=== PATIENT | male | born 1945 | race Caucasian/White ===

== ENCOUNTER 2020-08-23 08:32 | Outpatient (REF) | payer MEDICARE, SELFPAY ==
[2020-08-23 09:00] LABS: Basophils Percent Auto 0.4 % (0-2); Hematocrit 48.2 % (42-52); Imm Gran Abs Auto 0.01 X10*3/uL (0.00-0.03); Imm Gran Pct Auto 0.2 % (0.0-0.4); Mean Corpuscular Volume 95.4 fL (80-98); Red Blood Count 5.05 X10*6/uL (4.60-5.80)
[2020-08-23 09:02] LABS: Eosinophils Absolute Auto 0.1 X10*3/uL (0.0-0.4); Hemoglobin 16.3 g/dl (14.0-18.0); Lymphocytes Absolute Auto 1.4 X10*3/uL (1.2-4.9); Lymphocytes Percent Auto 26.4 % (20-40); Mean Corpuscular HGB Conc 33.8 g/dl (31.0-36.0); Mean Corpuscular Hemoglobin 32.3 pg (27.0-33.0); Monocytes Absolute Auto 0.5 X10*3/uL (0.1-1.2); Monocytes Percent Auto 9.2 % (2-11); Neutrophils Absolute Auto 3.2 X10*3/uL (2.0-8.3); Neutrophils Percent Auto 62.8 % (45-73); Platelet Count 133 X10*3/uL (160-400); Red Cell Distribution Width 12.2 % (11.0-16.0)
[2020-08-23 09:03] LABS: MANUAL DIFF FLAG NO
[2020-08-23 09:04] LABS: White Blood Count 5.1 X10*3/uL (4.8-10.8)
[2020-08-23 09:18] LABS: Glucose Urine UA NEG (NEG); Leukocyte Esterase Urine NEG (NEG); Nitrite Urine NEG (NEG); Specific Gravity - Urine >= 1.030 (1.005-1.025); Urine Blood 1+ (NEG); Urine Ketones NEG (NEG); Urine Protein NEG (NEG-TRACE)
[2020-08-23 09:20] LABS: Appearance Urine HAZY; Color Urine YELLOW
[2020-08-23 09:22] LABS: Alanine Aminotransferase 28 U/L (0-40); Albumin Level 4.8 g/dL (3.5-5.0); Alkaline Phosphatase 44 U/L (39-117); Anion Gap 14 (12-20); Aspartate Amino Transferase 30 U/L (5-37); Bilirubin Total 1.3 mg/dL (0.0-1.0); Blood Urea Nitrogen 25 mg/dL (9-16); Calcium 9.8 mg/dL (8.4-10.2); Carbon Dioxide 28 mmol/L (22-29); Chloride 104 mmol/L (96-108); Cholesterol 163 mg/dL; Estimated Glomerular Filt Rate > 60; Glucose Fasting 116 mg/dL (60-99); HDL Cholesterol 58 mg/dL; LDL Cholesterol Calculated 89 mg/dl; Potassium 5.3 mmol/L (3.3-5.1); Sodium 141 mmol/L (135-145); Total Protein 7.8 g/dL (6.5-8.0); Triglycerides 80 mg/dL
[2020-08-23 09:36] LABS: RBC Urine 0-2 /HPF (0); Squamous Epithelial Cell Urine TRACE /LPF; WBC Urine 0 /HPF (0-4)
[2020-08-23 09:45] LABS: TSH reflex Free T4 1.45 uIU/mL (0.32-4.0)
[2020-08-23 09:48] LABS: Estimated Average Glucose 100 mg/dL; Hemoglobin A1c % 5.1 %
== END 2020-08-23 08:33 | disposition home or self-care (01) ==
LOC: HO.LAB 08:32
PROVIDERS: PCP Internal Medicine; Visit Provider Internal Medicine
DX: E78.5 Hyperlipidemia, unspecified (principal); R73.01 Impaired fasting glucose
CPT/HCPCS: 36415; 80053; 80061; 81001; 83036; 84443; 85025

== ENCOUNTER 2021-02-21 08:36 | Outpatient (REF) | payer MEDICARE, SELFPAY ==
[2021-02-21 09:41] LABS: Hematocrit 45.4 % (42-52); Hemoglobin 15.5 g/dl (14.0-18.0); MANUAL DIFF FLAG SCAN; Mean Corpuscular HGB Conc 34.1 g/dl (31.0-36.0); Mean Platelet Volume 10.4 fL (9.4-12.4); PLT CLUMP 1; SCAN SMEAR FLAG 1
[2021-02-21 09:43] LABS: Basophils Percent Auto 0.6 % (0-2); Eosinophils Absolute Auto 0.1 X10*3/uL (0.0-0.4); Eosinophils Percent Auto 1.1 % (0-4); Lymphocytes Absolute Auto 1.3 X10*3/uL (1.2-4.9); Lymphocytes Percent Auto 23.9 % (20-40); Mean Corpuscular Hemoglobin 32.7 pg (27.0-33.0); Mean Corpuscular Volume 95.8 fL (80-98); Monocytes Absolute Auto 0.5 X10*3/uL (0.1-1.2); Monocytes Percent Auto 8.8 % (2-11); Neutrophils Absolute Auto 3.4 X10*3/uL (2.0-8.3); Neutrophils Percent Auto 65.6 % (45-73); Platelet Count 141 X10*3/uL (160-400); Red Blood Count 4.74 X10*6/uL (4.60-5.80); Red Cell Distribution Width 12.4 % (11.0-16.0); White Blood Count 5.2 X10*3/uL (4.8-10.8)
[2021-02-21 09:47] LABS: SLIDE REVIEW VERIFIED
[2021-02-21 09:51] LABS: Estimated Average Glucose 97 mg/dL
[2021-02-21 09:56] LABS: Urine Cytology See Pathology rpt
[2021-02-21 10:04] LABS: Alanine Aminotransferase 21 U/L (0-40); Albumin Level 4.7 g/dL (3.5-5.0); Alkaline Phosphatase 42 U/L (39-117); Anion Gap 14 (12-20); Aspartate Amino Transferase 29 U/L (5-37); Bilirubin Total 0.8 mg/dL (0.0-1.0); Blood Urea Nitrogen 26 mg/dL (9-16); Calcium 9.6 mg/dL (8.4-10.2); Carbon Dioxide 24 mmol/L (22-29); Chloride 107 mmol/L (96-108); Cholesterol 166 mg/dL; Estimated Glomerular Filt Rate > 60; Glucose Fasting 116 mg/dL (60-99); HDL Cholesterol 57 mg/dL; LDL Cholesterol Calculated 98 mg/dl; Potassium 4.9 mmol/L (3.3-5.1); Sodium 140 mmol/L (135-145); Total Protein 7.4 g/dL (6.5-8.0); Triglycerides 59 mg/dL
[2021-02-21 10:06] LABS: Appearance Urine CLEAR; Color Urine YELLOW; Glucose Urine UA NEG (NEG); Leukocyte Esterase Urine NEG (NEG); Nitrite Urine NEG (NEG); PH 5.5 (5.0-8.0); Specific Gravity - Urine >= 1.030 (1.005-1.025); UACC Culture Trigger NO; Urine Blood 1+ (NEG); Urine Ketones NEG (NEG); Urine Protein NEG (NEG-TRACE)
[2021-02-21 10:48] LABS: Squamous Epithelial Cell Urine TRACE /LPF; WBC Urine 0 /HPF (0-4)
== END 2021-02-21 08:37 | disposition home or self-care (01) ==
LOC: HO.LAB 08:36
PROVIDERS: PCP Internal Medicine; Visit Provider Internal Medicine
DX: R73.01 Impaired fasting glucose (principal); R31.1 Benign essential microscopic hematuria; E78.00 Pure hypercholesterolemia, unspecified
CPT/HCPCS: 36415; 80053; 80061; 81001; 81003; 83036; 85025

== ENCOUNTER 2021-08-22 08:53 | Outpatient (REF) | payer MEDICARE, SELFPAY ==
[2021-08-22 09:07] LABS: MANUAL DIFF FLAG NO
[2021-08-22 09:28] LABS: Appearance Urine CLEAR; Color Urine YELLOW; Glucose Urine UA NEG (NEG); Leukocyte Esterase Urine NEG (NEG); Nitrite Urine NEG (NEG); PH 5.5 (5.0-8.0); Specific Gravity - Urine 1.025 (1.005-1.025); UACC Culture Trigger NO; Urine Blood 1+ (NEG); Urine Ketones 15 MG/DL (NEG); Urine Protein NEG (NEG-TRACE)
[2021-08-22 09:47] LABS: Alanine Aminotransferase 26 U/L (0-40); Albumin Level 4.5 g/dL (3.5-5.0); Alkaline Phosphatase 40 U/L (39-117); Anion Gap 14 (12-20); Aspartate Amino Transferase 29 U/L (5-37); Bilirubin Total 1.3 mg/dL (0.0-1.0); Blood Urea Nitrogen 24 mg/dL (9-16); Calcium 10.2 mg/dL (8.4-10.2); Carbon Dioxide 28 mmol/L (22-29); Chloride 103 mmol/L (96-108); Cholesterol 162 mg/dL; Estimated Glomerular Filt Rate 59; Glucose Fasting 116 mg/dL (60-99); HDL Cholesterol 56 mg/dL; LDL Cholesterol Calculated 92 mg/dl; Potassium 5.1 mmol/L (3.3-5.1); Sodium 140 mmol/L (135-145); Total Protein 7.3 g/dL (6.5-8.0); Triglycerides 72 mg/dL
[2021-08-22 09:49] LABS: RBC Urine 0-2 /HPF (0); Squamous Epithelial Cell Urine TRACE /LPF; WBC Urine 0 /HPF (0-4)
[2021-08-22 10:10] LABS: TSH reflex Free T4 1.16 uIU/mL (0.32-4.0); Vitamin D 25-OH Total 35.4 ng/mL (>30)
[2021-08-22 13:34] LABS: Basophils Percent Auto 0.4 % (0-2); Eosinophils Percent Auto 0.4 % (0-4); Hematocrit 47.9 % (42.0-52.0); Hemoglobin 16.1 g/dl (14.0-18.0); Imm Gran Abs Auto 0.01 X10*3/uL (0.00-0.03); Imm Gran Pct Auto 0.2 % (0.0-0.4); Lymphocytes Absolute Auto 1.1 X10*3/uL (1.2-4.9); Lymphocytes Percent Auto 21.9 % (20-40); Mean Corpuscular HGB Conc 33.6 g/dl (31.0-36.0); Mean Corpuscular Hemoglobin 31.8 pg (27.0-33.0); Mean Corpuscular Volume 94.7 fL (80.0-98.0); Monocytes Absolute Auto 0.5 X10*3/uL (0.1-1.2); Monocytes Percent Auto 9.1 % (2-11); Neutrophils Absolute Auto 3.4 x10*3/uL (2.0-8.3); Platelet Count 131 X10*3/uL (160-400); Red Blood Count 5.06 X10*6/uL (4.60-5.80); Red Cell Distribution Width 11.8 % (11.0-16.0); White Blood Count 4.9 X10*3/uL (4.8-10.8)
== END 2021-08-22 08:54 | disposition home or self-care (01) ==
LOC: HO.LAB 08:53
PROVIDERS: PCP Internal Medicine; Visit Provider Internal Medicine
DX: I10 Essential (primary) hypertension (principal); E78.00 Pure hypercholesterolemia, unspecified; E55.9 Vitamin D deficiency, unspecified
CPT/HCPCS: 36415; 80053; 80061; 81001; 82306; 84443; 85025

== ENCOUNTER 2022-02-20 08:50 | Outpatient (REF) | payer MEDICARE, SELFPAY ==
[2022-02-20 09:05] LABS: MANUAL DIFF FLAG NO
[2022-02-20 09:15] LABS: Basophils Percent Auto 0.9 % (0-2); Eosinophils Percent Auto 0.9 % (0-4); Hematocrit 45.5 % (42.0-52.0); Hemoglobin 15.4 g/dl (14.0-18.0); Imm Gran Abs Auto 0.01 X10*3/uL (0.00-0.03); Imm Gran Pct Auto 0.2 % (0.0-0.4); Lymphocytes Absolute Auto 0.9 X10*3/uL (1.2-4.9); Lymphocytes Percent Auto 18.7 % (20-40); Mean Corpuscular HGB Conc 33.8 g/dl (31.0-36.0); Mean Corpuscular Volume 94.6 fL (80.0-98.0); Mean Platelet Volume 10.2 fL (9.4-12.4); Monocytes Absolute Auto 0.5 X10*3/uL (0.1-1.2); Monocytes Percent Auto 11.3 % (2-11); Neutrophils Absolute Auto 3.1 x10*3/uL (2.0-8.3); Platelet Count 141 X10*3/uL (160-400); Red Blood Count 4.81 X10*6/uL (4.60-5.80); White Blood Count 4.6 X10*3/uL (4.8-10.8)
[2022-02-20 09:52] LABS: Estimated Average Glucose 97 mg/dL
[2022-02-20 09:53] LABS: Alanine Aminotransferase 26 U/L (0-40); Albumin Level 4.7 g/dL (3.5-5.0); Alkaline Phosphatase 47 U/L (39-117); Anion Gap 13 (12-20); Aspartate Amino Transferase 30 U/L (5-37); Bilirubin Total 0.8 mg/dL (0.0-1.0); Blood Urea Nitrogen 19 mg/dL (9-16); Calcium 9.8 mg/dL (8.4-10.2); Carbon Dioxide 27 mmol/L (22-29); Chloride 105 mmol/L (96-108); Cholesterol 152 mg/dL; Estimated Glomerular Filt Rate > 60; Glucose Fasting 119 mg/dL (60-99); HDL Cholesterol 53 mg/dL; LDL Cholesterol Calculated 87 mg/dl; Potassium 5.4 mmol/L (3.3-5.1); Sodium 140 mmol/L (135-145); Total Protein 7.6 g/dL (6.5-8.0); Triglycerides 61 mg/dL
[2022-02-20 10:16] LABS: TSH reflex Free T4 1.26 uIU/mL (0.32-4.0); Vitamin D 25-OH Total 34.9 ng/mL (>30)
[2022-02-20 10:59] LABS: Urine Cytology See Pathology rpt
[2022-02-20 11:08] LABS: Appearance Urine Clear; Color Urine Yellow; Glucose Urine UA Negative (Negative); Leukocyte Esterase Urine Negative (Negative); Nitrite Urine Negative (Negative); PH 5.5 (5.0-8.0); Urine Blood Trace (Negative); Urine Ketones Trace mg/dL (Negative); Urine Protein Negative (Neg-Trace)
[2022-02-20 11:12] LABS: Bacteria Urine None Seen (None Seen); Hyaline Casts Urine 0-2 /LPF (0-2); Squamous Epithelial Cell Urine 0-2 /HPF (0-2); WBC Urine 0-5 /HPF (0-5)
== END 2022-02-20 08:51 | disposition home or self-care (01) ==
LOC: HO.LAB 08:50
PROVIDERS: PCP Internal Medicine; Visit Provider Internal Medicine
DX: R31.1 Benign essential microscopic hematuria (principal); E55.9 Vitamin D deficiency, unspecified; R73.01 Impaired fasting glucose; E78.00 Pure hypercholesterolemia, unspecified
CPT/HCPCS: 36415; 80053; 80061; 81001; 81003; 82306; 83036; 84443; 85025; 88112

== ENCOUNTER 2022-04-28 09:16 | Outpatient (REF) | payer MEDICARE, SELFPAY ==
--- NOTE | ~2022-04-28 | US_ITS ---
EXAMINATION: US ABDOMEN COMPLETE CLINICAL INFORMATION: Generalized abdominal pain. COMPARISON: None TECHNIQUE: Real-time imaging of the abdominal viscera. FINDINGS: PANCREAS: Visualized proximal pancreas is normal. Distal pancreas obscured by bowel gas. ABDOMINAL AORTA: The proximal, mid, and distal segments are normal in caliber. INFERIOR VENA CAVA: Visualized portions are normal. LIVER: The liver is normal in size. The liver contour is normal. Diffusely increased hepatic echogenicity and sound attenuation consistent with diffuse hepatic steatosis. Anechoic simple appearing cysts are seen in the left and right lobe of liver the largest measuring 1.2 cm in diameter in the right lobe of liver. No suspicious or concerning liver lesion seen. There is no intrahepatic biliary duct dilatation seen. GALLBLADDER: Normal. The gallbladder is physiologically distended without evidence of stones, sludge, polyps, wall thickening or pericholecystic fluid. COMMON BILE DUCT: Normal in caliber measuring 0.4 cm in diameter. RIGHT KIDNEY: Several well-circumscribed simple appearing renal cysts are present, the largest measuring 1.0 cm in the right mid kidney. There is a 1.3 cm cyst in the lower pole of the right kidney with peripheral rim calcification. No hydronephrosis or renal calculi. The kidney measures 9.6 cm in maximum dimension. LEFT KIDNEY: There 2 echogenic foci possibly representing nonshadowing calculi or vascular calcifications measuring 3 mm in the left mid kidney and 2 mm in the lower pole of the left kidney. No hydronephrosis or focal parenchymal lesions. The kidney measures 10.0 cm in maximum dimension. SPLEEN: Normal. The spleen measures 7.9 cm in maximum dimension. FREE FLUID: None. US/US abdomen complete IMPRESSION: No etiology for abdominal pain seen. There are hepatic and renal cysts. 2 small echogenic foci in the left kidney could represent nonobstructing calculi or vascular calcifications. No hydronephrosis.
== END 2022-04-28 09:17 | disposition home or self-care (01) ==
LOC: HO.US 09:16
PROVIDERS: Visit Provider Internal Medicine
DX: R10.84 Generalized abdominal pain (principal)
CPT/HCPCS: 76700

== ENCOUNTER 2022-09-15 07:07 | Day surgery (SDC) | payer MEDICARE, SELFPAY ==
--- NOTE | 2022-09-14 13:48 | P.CONAN_ITS ---
Documented by User: Ev Pedroza NP 09/14/22 13:49 HPI - Anesthesia Eval Consult details Narrative: 77yo M for Upper Endoscopy and Colonoscopy [facility] Active Problems Active Problems: All Active Problems (Updated 03/09/22 @ 10:04 by Ilya Rodriguez MD) Abdominal discomfort, generalized (Acute) Colon cancer screening (Acute) Nocturia (Acute) Benign essential microscopic hematuria (Acute) Impaired fasting glucose (Acute) Pure hypercholesterolemia (Acute) Past Medical History Medical History (Updated 03/09/22 @ 10:04 by Ilya Rodriguez MD) Benign essential microscopic hematuria Impaired fasting glucose Nocturia Pure hypercholesterolemia Family History Family History Father Cardiovascular disease Surgical History Surgical History (Updated 09/14/22 @ 13:45 by Tiffany Benoit RN) Hx of tonsillectomy Social History Social History Housing: House Alcohol intake: current Alcohol intake frequency: a few times a week Alcohol type: beer Patient Tobacco Use Status: Never used Tobacco Second Hand Smoke Exposure: Yes Use of substances other than those prescribed or required for medical reasons: No Are you DNR?: No Advance Directives: No Advance Directives Information Provided: Yes service: Yes Current occupational status: retired Cognitive needs: No Hearing needs: Yes Vision needs: Yes (reading glasses) Meds Allergies Allergy/AdvReac Type Severity Reaction Status Date / Time No Known Allergies Allergy Verified 03/09/22 09:53 Home Medications Medication Instructions Recorded Confirmed Last Taken Type aspirin 81 mg tablet,delayed 81 mg PO DAILY 09/01/20 03/09/22 Unknown History release Exam Exam Date and Time: September 14, 2022 134 Assessment and Plan Assessment Anesthesia Assessment: Chart Reviewed Documented by User: Tari Valencia MD 09/15/22 09:08 HPI - Anesthesia Eval Consult details Narrative: 77yo M for Upper Endoscopy and Colonoscopy screening weight loss abdominal pain PMFSH Past Medical History Medical History (Updated 03/09/22 @ 10:04 by Ilya Rodriguez MD) Benign essential microscopic hematuria Impaired fasting glucose Nocturia Pure hypercholesterolemia Family History Family History Father Cardiovascular disease Family history of problems with anesthesia: No Surgical History Surgical History (Updated 09/14/22 @ 13:45 by Tiffany Benoit RN) Hx of tonsillectomy History of Problems with Anesthesia: No Social History Social History Housing: House Alcohol intake: current Alcohol intake frequency: a few times a week Alcohol type: beer Patient Tobacco Use Status: Never used Tobacco Second Hand Smoke Exposure: Yes Use of substances other than those prescribed or required for medical reasons: No Are you DNR?: No Advance Directives: No Advance Directives Information Provided: Yes service: Yes Current occupational status: retired Cognitive needs: No Hearing needs: Yes Vision needs: Yes (reading glasses) Meds Allergies Allergy/AdvReac Type Severity Reaction Status Date / Time No Known Allergies Allergy Verified 03/09/22 09:53 Home Medications Medication Instructions Recorded Confirmed Last Taken Type aspirin 81 mg tablet,delayed 81 mg PO DAILY 09/01/20 03/09/22 Unknown History release Exam Airway Mallampati Class: II TM Dist: >3cm Neck ROM: Full Heart: rr Lungs: cta Assessment and Plan Assessment Anesthesia Assessment: Anesthesia Plan Discussed Final Anesthetic Review Family History of Problems with Anesthesia: No History of Problems with Anesthesia: No NPO: Yes ASA Class: II Final Preanesthetic Review: No Changes in Pt Med Stat, Meds/Allgs Chart Reviewed and Consent Obtained/Reviewed Patient Risk: Low Procedure Risk: Low Anesthetic Plan Anesthetic Plan: MAC: Disposition: Standard PACU
[2022-09-15 08:06] VITALS: BP 137/75; PULSE 112; RESP 18; TEMP 36.7; O2SAT 98
[2022-09-15] MEDS: Lactated Ringers 1,000 ML 100 ML IVCONT (08:16)
[2022-09-15 09:45] VITALS: BP 95/61; PULSE 87; RESP 18; TEMP 36.3; O2SAT 96
--- NOTE | 2022-09-15 09:49 | P.BOP_ITS ---
Brief Operative Note Date of Service: 09/15/22 Pre-op diagnosis: Abdominal pain, screening Post-op diagnosis: other (Mild gastritis, Hiatal hernia, Diverticulosis) Procedure: EGD with biopsies, Colonoscopy to the cecum and TI Surgeon: Ra Wilkinson Anesthesia: MAC Was an Stamp Analyst used for this Procedure?: No Estimated blood loss (mL): 2.0 Pathology: other (A. Descending duodenum B. Gastric antrum C. Gastric polyp D. EG Junction at 38cm) Condition: stable Disposition: PACU
[2022-09-15 10:00] VITALS: BP 101/71; PULSE 82; RESP 18; O2SAT 99
[2022-09-15 10:15] VITALS: BP 111/75; PULSE 82; RESP 18; TEMP 36.4; O2SAT 100
--- NOTE | 2022-09-15 20:34 | OP_ITS ---
DATE OF SERVICE: 09/15/2022 SURGEON: Ra Wilkinson MD INDICATIONS: The patient presents for evaluation of abdominal discomfort, weight loss, and colorectal cancer screening. Full consent has been obtained from him for this, including risks of bleeding and perforation. PREOPERATIVE DIAGNOSIS: POSTOPERATIVE DIAGNOSIS: PROCEDURE PERFORMED: ESTIMATED BLOOD LOSS: COMPLICATIONS: ANESTHESIA: Medication used, monitored anesthesia care. ASSISTANTS: SPECIMENS: PREOPERATIVE DIAGNOSES: Abdominal pain, colorectal cancer screening, and weight loss. POSTOPERATIVE DIAGNOSES: Abdominal pain, colorectal cancer screening, weight loss, rule out celiac disease, mild gastritis, gastric polyp, small hiatal hernia, diverticulosis, and internal hemorrhoids. PROCEDURES PERFORMED: Esophagogastroduodenoscopy with biopsies, and colonoscopy to the cecum and terminal ileum. DESCRIPTION OF PROCEDURE: The patient was placed in the left lateral decubitus position. The Olympus video gastroscope was passed in the posterior oropharynx and upper esophagus under direct vision. The scope was passed slowly to the distal esophagus. The gastroesophageal junction appeared at 38 cm. There was some minimal irregularity consistent with reflux, but no evidence of esophagitis nor any definitive evidence of Gilliam's mucosa. There was a small hiatal hernia. The scope was advanced to the pylorus and the duodenum was cannulated to the descending portion. The duodenum including the bulb appeared normal without mass or ulceration. Biopsies were obtained from the second and third portions of duodenum. The scope was withdrawn back in the stomach. The gastric antrum and body had some mild areas of gastritis with erythema and edema, but no erosions, no ulcerations. There was good peristalsis. The scope was retroflexed visualizing the proximal stomach carefully, which appeared normal, other than a probable hyperplastic polyp. There was no mass or ulceration. The scope was straightened. Biopsies were obtained from the gastric antrum. I did obtain biopsies from the gastric polyp as well. The scope was withdrawn back to the esophagus. Biopsies were obtained at the EG junction at 38 cm. Proximal to that, the esophageal mucosa appeared normal. The scope was withdrawn from the patient. He was turned around for the colonoscopy. The digital rectal exam revealed no abnormalities. The Olympus video pediatric colonoscope was entered into the rectum and advanced easily to the cecum. Once in the cecum, I did identify normal-appearing cecal pouch with appendiceal orifice and a normal-appearing ileocecal valve. The terminal ileum was cannulated and appeared normal. The scope was withdrawn back in the colon. The entire cecum and ileocecal valve appeared normal. The scope was then slowly withdrawn assessing all mucosal surfaces carefully. The preparation was excellent. I did not visualize any sign of polyps, colitis, nor angiodysplasia. There is a moderate amount of sigmoid diverticulosis. In the rectum, the scope was retroflexed visualizing internal hemorrhoids, but no other pathology. The rectal mucosa appeared normal. Scope was straightened and withdrawn from the patient. He tolerated both procedures well and was returned to the recovery area in stable condition. IMPRESSION: 1. Small hiatal hernia. 2. Mild gastritis. 3. Gastric polyp. 4. Rule out celiac disease. 5. Diverticulosis. 6. Internal hemorrhoids. PLAN: The results of the biopsies will be checked. Given the negative colonoscopy, I do not think he will need a further screening colonoscopies. He was advised not to use any aspirin or NSAIDs for 1 week. At this point, he reports that his stomach has actually been feeling better and his weight has been stable. I do not think he needs to be treated with any acid suppression at this time unless he begins having any upper GI complaints in that regard. If things remain stable, I have advised him to see me again on a p.r.n. basis. This has been discussed with his . MD JAY Enrique/ZHEN / [id number] MTDD
== END 2022-09-15 10:59 | disposition home or self-care (01) ==
PROVIDERS: Visit Provider Internal Medicine
PROC: (CPT 43239; principal; 2022-09-15 08:30)
DX: Z12.11 Encounter for screening for malignant neoplasm of colon (principal); K57.30 Diverticulosis of large intestine without perforation or abscess without bleeding; K64.8 Other hemorrhoids; R63.4 Abnormal weight loss; Z68.20 Body mass index [BMI] 20.0-20.9, adult; K29.50 Unspecified chronic gastritis without bleeding; K31.7 Polyp of stomach and duodenum; K44.9 Diaphragmatic hernia without obstruction or gangrene; Z79.82 Long term (current) use of aspirin; Z79.899 Other long term (current) drug therapy
CPT/HCPCS: 43239; G0121; 88305; 88342

== ENCOUNTER 2022-10-02 08:37 | Outpatient (REF) | payer MEDICARE, SELFPAY ==
[2022-10-02 08:53] LABS: MANUAL DIFF FLAG NO
[2022-10-02 09:21] LABS: Basophils Percent Auto 0.5 % (0-2); Eosinophils Absolute Auto 0.1 X10*3/uL (0.0-0.4); Eosinophils Percent Auto 1.1 % (0-4); Hematocrit 46.4 % (42.0-52.0); Hemoglobin 15.6 g/dl (14.0-18.0); Imm Gran Abs Auto 0.01 X10*3/uL (0.00-0.03); Imm Gran Pct Auto 0.2 % (0.0-0.4); Lymphocytes Percent Auto 18.4 % (20-40); Mean Corpuscular HGB Conc 33.6 g/dl (31.0-36.0); Mean Corpuscular Hemoglobin 31.8 pg (27.0-33.0); Mean Corpuscular Volume 94.5 fL (80.0-98.0); Mean Platelet Volume 9.9 fL (9.4-12.4); Monocytes Absolute Auto 0.4 X10*3/uL (0.1-1.2); Monocytes Percent Auto 7.7 % (2-11); Neutrophils Percent Auto 72.1 % (45-73); Platelet Count 146 X10*3/uL (160-400); Red Blood Count 4.91 X10*6/uL (4.60-5.80); Red Cell Distribution Width 11.9 % (11.0-16.0); White Blood Count 5.6 X10*3/uL (4.8-10.8)
[2022-10-02 09:23] LABS: Urine Cytology See Pathology rpt
[2022-10-02 09:29] LABS: Appearance Urine Clear; Color Urine Yellow; Glucose Urine UA Negative (Negative); Leukocyte Esterase Urine Negative (Negative); Nitrite Urine Negative (Negative); PH 5.5 (5.0-9.0); UMIC TRIGGER UACC YES; Urine Blood Small (1+) (Negative); Urine Ketones 15 mg/dL (Negative); Urine Protein Negative (Neg-Trace)
[2022-10-02 09:32] LABS: Bacteria Urine None Seen (None Seen); Hyaline Casts Urine 0-2 /LPF (0-2); Squamous Epithelial Cell Urine 0-2 /HPF (0-2); WBC Urine 0-5 /HPF (0-5)
[2022-10-02 09:46] LABS: Estimated Average Glucose 97 mg/dL
[2022-10-02 09:58] LABS: Alanine Aminotransferase 22 U/L (0-40); Albumin Level 4.5 g/dL (3.5-5.0); Alkaline Phosphatase 36 U/L (39-117); Anion Gap 14 (12-20); Aspartate Amino Transferase 28 U/L (5-37); Bilirubin Total 0.9 mg/dL (0.0-1.0); Blood Urea Nitrogen 19 mg/dL (9-16); Calcium 9.7 mg/dL (8.4-10.2); Carbon Dioxide 25 mmol/L (22-29); Chloride 106 mmol/L (96-108); Cholesterol 148 mg/dL; Estimated Glomerular Filt Rate > 60; Glucose Fasting 100 mg/dL (60-99); HDL Cholesterol 47 mg/dL; LDL Cholesterol Calculated 89 mg/dl; Potassium 4.9 mmol/L (3.3-5.1); Sodium 140 mmol/L (135-145); Triglycerides 63 mg/dL
[2022-10-02 10:17] LABS: TSH reflex Free T4 1.34 uIU/mL (0.32-4.0); Vitamin D 25-OH Total 32.7 ng/mL (>30)
== END 2022-10-02 08:38 | disposition home or self-care (01) ==
LOC: HO.LAB 08:37
PROVIDERS: PCP Internal Medicine; Visit Provider Internal Medicine
DX: E55.9 Vitamin D deficiency, unspecified (principal); E78.00 Pure hypercholesterolemia, unspecified; R31.1 Benign essential microscopic hematuria; R73.01 Impaired fasting glucose; I10 Essential (primary) hypertension
CPT/HCPCS: 36415; 80053; 80061; 81001; 82306; 83036; 84443; 85025; 88112

== ENCOUNTER 2023-04-02 08:24 | Outpatient (REF) | payer MEDICARE, SELFPAY | END 2023-04-02 08:25 | disposition home or self-care (01) | LOC: HO.LAB 08:24 | PROVIDERS: PCP Internal Medicine; Visit Provider Internal Medicine | DX: K22.70 Barrett's esophagus without dysplasia (principal); K20.90 Esophagitis, unspecified without bleeding; E55.9 Vitamin D deficiency, unspecified; E78.00 Pure hypercholesterolemia, unspecified; R73.01 Impaired fasting glucose; N40.0 Benign prostatic hyperplasia without lower urinary tract symptoms; R30.0 Dysuria; Z12.5 Encounter for screening for malignant neoplasm of prostate | CPT/HCPCS: 36415; 80053; 80061; 81001; 82306; 83036; 84153; 84443; 85025 ==

== ENCOUNTER 2023-04-14 09:50 | Outpatient (AMB) | payer MEDICARE, SELFPAY ==
[2023-04-14 09:52] VITALS: BP 130/86; PULSE 94; O2SAT 98; BMI 18.7
--- NOTE | 2023-04-14 09:52 | A.OFFPC_ITS ---
Vital Signs 04/14/23 09:52 Height 5 ft 7 in Weight 119 lb 8 oz BMI 18.7 BP 130/86 Blood Pressure Location Lt brachial Position Sitting Pulse 94 Pulse Source Pulse Oximeter Pulse Oximetry (%) 98 Oxygen Delivery Method Room Air Intake Visit Reasons: hyperlipidemia, Gilliam's esophagitis Manager Pricing Required: No Accompanied by: Self / Same As Patient Allergies No Known Allergies Allergy (Verified 04/14/23 10:39) Medication List - Last Reconciled 04/14/23 by Ilya Rodriguez MD aspirin 81 mg PO DAILY pantoprazole 40 mg PO DAILY 90 days simvastatin 20 mg PO BEDTIME Tobacco use date assessed: 04/14/23 Fall risk assessment: No Falls in past year Last assessed Fall Risk: 04/14/23 Dental Screening Dental Screen Date: 04/14/23 Did you have a dental visit in the last 12 months?: Yes Did you have a dental problem in the last 6 months where you did not have access to dental care?: No Was dental information given to patient?: Patient has dentist HPI hyperlipidemia, Gilliam's esophagitis HPI Details Patient comes in today for his follow up visit States that he feels okay He denies any headaches or dizziness Denies any chest pains, no SOB No nausea/vomiting, no abdominal pain No change in bowel habits noted Had his follow up labs done a couple of weeks ago - to discuss his results He had his repeat EGD and colonoscopy done back in August [address] 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 although he denies any heartburns or symptoms of acid reflux - states that he has not been taking his Pantoprazole in a while now as he has no symptoms of heartburns or acid reflux PFSH Medical History Gilliam's esophagus Nocturia Benign essential microscopic hematuria Impaired fasting glucose Pure hypercholesterolemia Surgical History Hx of esophagogastroduodenoscopy (~09/15/22) Hx of colonoscopy (~09/15/22) Hx of tonsillectomy Family History Father Cardiovascular disease Social History Housing: House Alcohol intake: current Alcohol intake frequency: a few times a week Alcohol type: beer Patient Tobacco Use Status: Never used Tobacco e-Cigarette/Vaping Use: Never Used Second Hand Smoke Exposure: Yes service: Yes Current occupational status: retired Cognitive needs: No Hearing needs: Yes Vision needs: Yes (reading glasses) Questionnaire PHQ-9 Over the last 2 weeks, how often have you been bothered by any of the following problems? 1. Little interest or pleasure in doing things: not at all 2. Feeling down, depressed, or hopeless: not at all 3. Trouble falling or staying asleep, or sleeping too much: not at all 4. Feeling tired or having little energy: not at all 5. Poor appetite or overeating: not at all 6. Feeling bad about yourself - or that you are a failure or have let yourself or your family down: not at all 7. Trouble concentrating on things, such as reading the newspaper or watching television: not at all 8. Moving or speaking so slowly that other people could have noticed. Or the opposite - being so fidgety or restless that you have been moving around a lot more than usual: not at all 9. Thoughts that you would be better off or of hurting yourself in some way: not at all Total score: 0 Depression Screening Interpretation: Negative Depression Screening Done: Yes [id number] - PHQ-9 Billing: Yes Source: Developed by Drs. Ra Pan, Lindy Pederson, Rohan Nobles and colleagues, with an educational emma from [employer]. Thrive Questionnaire Date Thrive assessed: 04/14/23 I am a: Patient What is your living situation today?: I have a steady place to live Within the past 12 months, did the food you bought not last and you didn't have the money to get more?: Never true Within the past 12 months, did you worry whether your food would run out before you got money to buy more?: Never true Do you have trouble paying for medicines?: No Do you have trouble getting transportation to medical appointments?: No Do you have trouble paying your heating and electricity bill?: No Do you have trouble taking care of your child, family member or friend?: No Do you have trouble with day-to-day activities such as bathing, preparing meals, shopping, managing finances, etc.?: No Are you currently unemployed and looking for a job?: No Are you interested in more education?: No Please select the resources that you would like help with: None Currently or been in a relationship where the following occur: no concerns reported AUDIT C Alcohol Use Questionnaire (AUDIT-C) 1. How often do you have a drink containing alcohol?: 2-3 times a week 2. How many drinks containing alcohol do you have on a typical day when you are drinking?: 1 or 2 3. How often do you have six or more drinks on one occasion?: Never Total Score: 3 Score Reviewed/Action Taken: Yes PHAN-7 AMB Questionnaire PHAN-7 Date PHAN - 7 assessed: 04/14/23 Feeling nervous, anxious, or on edge: 0 = Not at all Not being able to stop or control worryin = Not at all Worrying too much about different things: 0 = Not at all Trouble relaxin = Not at all Being so restless that it is hard to sit still: 0 = Not at all Becoming easily annoyed or irritable: 0 = Not at all Feeling afraid as if something awful might happen: 0 = Not at all Total PHAN-7 score (0-4 normal; 5-9 mild; 10-14 moderate; 15-21 severe): 0 Source: Developed by Drs. Ra Pan, Lindy Pederson, Rohan Nobles and colleagues, with an educational emma from [employer]. Review of Systems Const Denies fatigue, Denies fever(s), Denies headache(s) and Reports weight loss (10 pounds since last visit ) ENT Denies dysphagia, Denies dizziness, Denies otalgia, Denies headache(s), Denies neck pain, Denies odynophagia and Denies sore throat Card Denies chest pain, Denies palpitations and Denies dyspnea Resp Denies cough and Denies dyspnea GI Denies abdominal pain, Denies constipation, Denies dysphagia, Denies heartburn, Denies diarrhea, Denies nausea, Denies odynophagia and Denies vomiting Denies dysuria, Denies nocturia and Denies urinary frequency Musc Denies back pain and Denies neck pain Skin/Breast Denies rash Neuro Denies dizziness and Denies headache(s) Endo Denies fatigue and Denies palpitations Physical exam (Primary Care) Vital Signs: Last Vital Signs Pulse 94 04/14/23 09:52 BP 130/86 04/14/23 09:52 Pulse Ox 98 04/14/23 09:52 Oxygen Delivery Method Room Air 04/14/23 09:52 BMI result Body Mass Index 18.7 Tobacco/Smoking Status: Tobacco use Status Tobacco use date assessed 04/14/23 04/14/23 09:57 Patient Tobacco Use Status Never used Tobacco 04/14/23 09:57 e-Cigarette/Vaping Use Never Used 04/14/23 09:57 PHQ-9: PHQ-9 Score PHQ-9: Total score 0 04/14/23 10:43 Depression Screening Interpretation: Negative Thrive Assessment: Date of Thrive Assessment Date Thrive assessed 04/14/23 04/14/23 09:57 Currently or been in a relationship where the following occur: no concerns reported Const General: no acute distress and alert HENMT Ears: TM's normal bilaterally and EAC's normal Throat: Yes posterior oropharynx normal and Yes tonsils normal (no TP congestion noted) Neck Neck: Yes no lymphadenopathy and Yes supple Resp Auscultation: clear to auscultation bilaterally, no rales and no wheezes Cardio Rate: regular rate Rhythm: regular rhythm Heart sounds: no murmurs GI Palpation (GI): Soft to palpation and nontender Auscultation: normal bowel sounds Skin Rashes: no rashes Extrem General: Yes no clubbing, cyanosis or edema Results Reviewed Results Reviewed: Laboratory Tests 04/02/23 08:33 WBC 4.3 L Hgb 16.1 Hct 47.3 Plt Count 128 L Sodium 141 Potassium 4.7 Creatinine 1.02 Estimated GFR > 60 Hemoglobin A1c % 5.0 Calcium 10.0 AST 38 H ALT 50 H Triglycerides 68 Cholesterol 146 LDL Cholesterol, Calc 76 HDL Cholesterol 57 Prostate Specific Ag 0.48 25-OH Vitamin D Total 53.4 TSH 1.65 Urine pH 5.5 Ur Specific [place] 1.020 Urine Protein Negative Urine Glucose (UA) Negative Urine Blood Small (1+) H Assessment and Plan Assessment & Plan (1) Pure hypercholesterolemia: Code(s): E78.00 - Pure hypercholesterolemia, unspecified Plan: Results of his labs done a couple of weeks ago reviewed and discussed with patient Reinforced low cholesterol diet Continue Simvastatin 20 mg QD Will recheck labs in 6 months for follow up (2) Impaired fasting glucose: Code(s): R73.01 - Impaired fasting glucose Plan: HgbA1c was normal and remains unchanged from previous at 5.0% on his labs done a couple of weeks ago Reinforced low calorie diet/exercise as tolerated (3) Benign essential microscopic hematuria: Code(s): R31.1 - Benign essential microscopic hematuria Plan: Asymptomatic Urine cytology have been normal when checked in the past - will continue to monitor regularly Patient also has simple renal cysts on the right kidney seen incidentally on abdominal US done back in April 2022 (4) Simple hepatic cyst: Code(s): K76.89 - Other specified diseases of liver Plan: He also has small hepatic cysts seen on abdominal ultrasound done back in April 2022 - no further work ups or intervention is indicated at this time (5) Gilliam's esophagus: Comment: EGD with Bx done in August 2022 Code(s): K22.70 - 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 Qualifiers: Gilliam's esophagus type: without dysplasia Qualified Code(s): K22.70 - 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 Plan: (+) 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 Reinforced dietary restrictions He had a repeat EGD with Bx and colonoscopy done back in August 2022 -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 although 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 Have advised patient that he should start back on Pantoprazole 40 mg QD and take it daily to minimize risk of progression of his Gilliam's esophagitis to esophageal cancer Advised that acid reflux can occur irregardless of whether he has symptoms or not - Pantoprazole Rx refilled (6) Elevated LFTs: Code(s): R79.89 - Other specified abnormal findings of blood chemistry Plan: Advised that his LFTs are slightly elevated on his recent labs - this could be either due to a combination of his cholesterol or effect of his medication (Simvastatin) or alcohol Have advised patient to be more watchful of his alcohol intake and to avoid taking large doses of acetaminophen or Tylenol Abdominal US done back in April 2022 revealed (+) diffusely increased hepatic echogenicity and sound attenuation consistent with diffuse hepatic steatosis Will recheck his LFTs in 6 months for follow-up (7) Weight loss: Code(s): R63.4 - Abnormal weight loss Plan: Patient has lost about 10 pounds since his last visit States that he eats well and no longer has any issues with abdominal pain Advised that his weight loss may be result of his losing some muscle mass - explained that muscle is severe that fat and even losing just a small amount of muscle mass can translate to significant weight loss He is advised to try to stay active and exercise regularly and even do some mild weights on a daily basis to try to help him slow down his muscle loss Plan Follow up in 6 months Orders: Orders Lipid Panel 6 Months E78.00 - Pure hypercholesterolemia, unspecified Comprehensive [place]. Panel Fast 6 Months E78.00 - Pure hypercholesterolemia, unspecified TSH reflex Free T4 6 Months E78.00 - Pure hypercholesterolemia, unspecified Complete Blood Count Auto Diff 6 Months I10 - Essential (primary) hypertension UA CC w/rflx Micro + Cult 6 Months R30.0 - Dysuria Testosterone, Free/Total 6 Months R79.89 - Other specified abnormal findings of blood chemistry Vitamin D 25-OH Total 6 Months E55.9 - Vitamin D deficiency, unspecified Medications: Refilled pantoprazole 40 mg PO DAILY 90 tabs 3RF 90 days K20.90 - Esophagitis, unspecified without bleeding, K22.70 - 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 Coding Level of Care Code Est Pt Level 4 (60068) Diagnoses Pure hypercholesterolemia E78.00 Impaired fasting glucose R73.01 Benign essential microscopic hematuria R31.1 Simple hepatic cyst K76.89 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 type: without dysplasia Elevated LFTs R79.89 Weight loss R63.4
== END 2023-04-14 10:55 | disposition home or self-care (01) ==
PROVIDERS: Visit Provider Internal Medicine
DX: E78.00 Pure hypercholesterolemia, unspecified (principal); R73.01 Impaired fasting glucose; R31.1 Benign essential microscopic hematuria; K76.89 Other specified diseases of liver; K22.70 Barrett's esophagus without dysplasia; R79.89 Other specified abnormal findings of blood chemistry; R63.4 Abnormal weight loss
CPT/HCPCS: 99214

== ENCOUNTER 2023-10-15 08:12 | Outpatient (REF) | payer MEDICARE, SELFPAY ==
[2023-10-15 08:40] LABS: MANUAL DIFF FLAG NO
[2023-10-15 10:06] LABS: Basophils Percent Auto 0.7 % (0-2); Hematocrit 46.4 % (42.0-52.0); Hemoglobin 15.8 g/dl (14.0-18.0); Imm Gran Abs Auto 0.01 X10*3/uL (0.00-0.03); Imm Gran Pct Auto 0.2 % (0.0-0.4); Lymphocytes Percent Auto 24.6 % (20-40); Mean Corpuscular HGB Conc 34.1 g/dl (31.0-36.0); Mean Corpuscular Hemoglobin 32.4 pg (27.0-33.0); Mean Corpuscular Volume 95.3 fL (80.0-98.0); Mean Platelet Volume 10.6 fL (9.4-12.4); Monocytes Absolute Auto 0.3 X10*3/uL (0.1-1.2); Monocytes Percent Auto 7.4 % (2-11); Neutrophils Absolute Auto 2.8 x10*3/uL (2.0-8.3); Neutrophils Percent Auto 66.1 % (45-73); Platelet Count 147 X10*3/uL (160-400); Red Blood Count 4.87 X10*6/uL (4.60-5.80); Red Cell Distribution Width 11.9 % (11.0-16.0); White Blood Count 4.2 X10*3/uL (4.8-10.8)
[2023-10-15 11:04] LABS: Appearance Urine Clear; Color Urine Yellow; Glucose Urine UA Negative (Negative); Leukocyte Esterase Urine Negative (Negative); Nitrite Urine Negative (Negative); PH 5.5 (5.0-9.0); UMIC TRIGGER UACC YES; Urine Blood Small (1+) (Negative); Urine Ketones Negative (Negative); Urine Protein Negative (Neg-Trace)
[2023-10-15 11:12] LABS: Alanine Aminotransferase 29 U/L (0-40); Albumin Level 4.4 g/dL (3.5-5.0); Alkaline Phosphatase 36 U/L (39-117); Anion Gap 12 (12-20); Aspartate Amino Transferase 31 U/L (5-37); Bilirubin Total 0.7 mg/dL (0.0-1.0); Blood Urea Nitrogen 23 mg/dL (9-16); Calcium 9.7 mg/dL (8.4-10.2); Carbon Dioxide 27 mmol/L (22-29); Chloride 106 mmol/L (96-108); Cholesterol 139 mg/dL (<200); Estimated Glomerular Filt Rate > 60; Glucose Fasting 111 mg/dL (60-99); HDL Cholesterol 53 mg/dL (>40); LDL Cholesterol Calculated 74 mg/dL (<100); Sodium 141 mmol/L (135-145); Total Protein 7.2 g/dL (6.5-8.0); Triglycerides 60 mg/dL (<150)
[2023-10-15 11:30] LABS: TSH reflex Free T4 1.22 uIU/mL (0.32-4.0); Vitamin D 25-OH Total 38.4 ng/mL (>30)
[2023-10-15 11:38] LABS: Bacteria Urine None Seen (None Seen); Hyaline Casts Urine 0-2 /LPF (0-2); Squamous Epithelial Cell Urine 0-2 /HPF (0-2); WBC Urine 0-5 /HPF (0-5)
[2023-10-20 14:48] LABS: Testosterone, Free 80.3 pg/mL (30.0-135.0); Testosterone, Total 1029 ng/dL (250-1100)
== END 2023-10-15 08:13 | disposition home or self-care (01) ==
LOC: HO.LAB 08:12
PROVIDERS: PCP Internal Medicine; Visit Provider Internal Medicine
DX: E78.00 Pure hypercholesterolemia, unspecified (principal); R79.89 Other specified abnormal findings of blood chemistry; I10 Essential (primary) hypertension; E55.9 Vitamin D deficiency, unspecified; R30.0 Dysuria
CPT/HCPCS: 36415; 80053; 80061; 81001; 81003; 82306; 84402; 84403; 84443; 85025

== ENCOUNTER 2023-10-18 10:43 | Outpatient (AMB) | payer MEDICARE, SELFPAY ==
[2023-10-18 11:07] VITALS: BP 132/88; PULSE 103; O2SAT 98; BMI 20.7
--- NOTE | 2023-10-18 11:07 | A.OFFPC_ITS ---
Vital Signs 10/18/23 11:07 Height 5 ft 4.17 in Weight 121 lb 6 oz BMI 20.7 BP 132/88 Blood Pressure Location Lt brachial Position Sitting Pulse 103 H Pulse Source Pulse Oximeter Pulse Oximetry (%) 98 Oxygen Delivery Method Room Air Intake Visit Reasons: 6 month f/u Compliance Engineer Products Required: No Accompanied by: Self / Same As Patient Allergies No Known Allergies Allergy (Verified 10/18/23 11:48) Medication List - Last Reconciled 10/18/23 by Ilya Rodriguez MD aspirin 81 mg PO DAILY pantoprazole 40 mg PO DAILY 90 days simvastatin 20 mg PO BEDTIME Tobacco use date assessed: 10/18/23 Fall risk assessment: No Falls in past year Last assessed Fall Risk: 10/18/23 Dental Screening Dental Screen Date: 10/18/23 Did you have a dental visit in the last 12 months?: Yes Did you have a dental problem in the last 6 months where you did not have access to dental care?: No Was dental information given to patient?: Patient has dentist HPI 6 month f/u HPI Details Patient comes in today for his follow up visit States that he feels okay He denies any headaches or dizziness Denies any chest pains, no SOB No nausea/vomiting, no abdominal pain No change in bowel habits noted States that he recently received a notice from his insurance company that they are moving his Pantoprazole to a higher tier on their formulary coverage and that he will have to pay more on his co-pay if he wishes to stay on the same Rx and is wondering if there is a cheaper alternative that he can be switched over to Had his follow up labs done a few days ago - to discuss his results [facility] Medical History Gilliam's esophagus Nocturia Benign essential microscopic hematuria Impaired fasting glucose Pure hypercholesterolemia Surgical History Hx of esophagogastroduodenoscopy (~09/15/22) Hx of colonoscopy (~09/15/22) Hx of tonsillectomy Family History Father Cardiovascular disease Social History Housing: House Alcohol intake: current Alcohol intake frequency: a few times a week Alcohol type: beer Patient Tobacco Use Status: Never used Tobacco e-Cigarette/Vaping Use: Never Used Second Hand Smoke Exposure: Yes service: Yes Current occupational status: retired Cognitive needs: No Hearing needs: Yes Vision needs: Yes (reading glasses) Questionnaire PHQ-9 Over the last 2 weeks, how often have you been bothered by any of the following problems? 1. Little interest or pleasure in doing things: not at all 2. Feeling down, depressed, or hopeless: not at all 3. Trouble falling or staying asleep, or sleeping too much: not at all 4. Feeling tired or having little energy: not at all 5. Poor appetite or overeating: not at all 6. Feeling bad about yourself - or that you are a failure or have let yourself or your family down: not at all 7. Trouble concentrating on things, such as reading the newspaper or watching television: not at all 8. Moving or speaking so slowly that other people could have noticed. Or the opposite - being so fidgety or restless that you have been moving around a lot more than usual: not at all 9. Thoughts that you would be better off or of hurting yourself in some way: not at all Total score: 0 Depression Screening Interpretation: Negative Depression Screening Done: Yes 67651 - PHQ-9 Billing: Yes Source: Developed by Drs. Ra Pan, Lindy Pederson, Rohan Nobles and colleagues, with an educational emma from [employer]. Thrive Questionnaire Date Thrive assessed: 10/18/23 I am a: Patient What is your living situation today?: I have a steady place to live Within the past 12 months, did the food you bought not last and you didn't have the money to get more?: Never true Within the past 12 months, did you worry whether your food would run out before you got money to buy more?: Never true Do you have trouble paying for medicines?: No Do you have trouble getting transportation to medical appointments?: No Do you have trouble paying your heating and electricity bill?: No Do you have trouble taking care of your child, family member or friend?: No Do you have trouble with day-to-day activities such as bathing, preparing meals, shopping, managing finances, etc.?: No Are you currently unemployed and looking for a job?: No Are you interested in more education?: No Please select the resources that you would like help with: None Currently or been in a relationship where the following occur: no concerns reported THRIVE Score: 0 AUDIT C Alcohol Use Questionnaire (AUDIT-C) 1. How often do you have a drink containing alcohol?: 2-3 times a week 2. How many drinks containing alcohol do you have on a typical day when you are drinking?: 1 or 2 3. How often do you have six or more drinks on one occasion?: Never Total Score: 3 Score Reviewed/Action Taken: Yes PHAN-7 AMB Questionnaire PHAN-7 Date PHAN - 7 assessed: 10/18/23 Feeling nervous, anxious, or on edge: 0 = Not at all Not being able to stop or control worryin = Not at all Worrying too much about different things: 0 = Not at all Trouble relaxin = Not at all Being so restless that it is hard to sit still: 0 = Not at all Becoming easily annoyed or irritable: 0 = Not at all Feeling afraid as if something awful might happen: 0 = Not at all Total PHAN-7 score (0-4 normal; 5-9 mild; 10-14 moderate; 15-21 severe): 0 Source: Developed by Drs. Ra Pan, Lindy Pederson, Rohan Nobles and colleagues, with an educational emma from [employer]. PHAN-7 Assessment Billing PHAN-7 Assessment Tool: PHAN-7 Assessment 18530 Review of Systems Const Denies chills, Denies fatigue, Denies fever(s) and Denies headache(s) ENT Denies dysphagia, Denies dizziness, Denies otalgia, Denies headache(s), Denies neck pain, Denies odynophagia and Denies sore throat Card Denies chest pain, Denies palpitations and Denies dyspnea Resp Denies cough and Denies dyspnea GI Denies abdominal pain, Denies constipation, Denies dysphagia, Denies heartburn, Denies diarrhea, Denies nausea, Denies odynophagia and Denies vomiting Denies dysuria, Denies nocturia and Denies urinary frequency Musc Denies back pain and Denies neck pain Skin/Breast Denies rash Neuro Denies dizziness and Denies headache(s) Endo Denies fatigue and Denies palpitations Physical exam (Primary Care) Vital Signs: Last Vital Signs Pulse 103 H 10/18/23 11:07 BP 132/88 10/18/23 11:07 Pulse Ox 98 10/18/23 11:07 Oxygen Delivery Method Room Air 10/18/23 11:07 BMI result Body Mass Index 20.7 Tobacco/Smoking Status: Tobacco use Status Tobacco use date assessed 10/18/23 10/18/23 11:13 Patient Tobacco Use Status Never used Tobacco 10/18/23 11:13 e-Cigarette/Vaping Use Never Used 10/18/23 11:13 PHQ-9: PHQ-9 Score PHQ-9: Total score 0 10/18/23 11:52 Depression Screening Interpretation: Negative Thrive Assessment: Date of Thrive Assessment Date Thrive assessed 10/18/23 10/18/23 11:13 Currently or been in a relationship where the following occur: no concerns reported Const General: no acute distress and alert HENMT Ears: TM's normal bilaterally and EAC's normal Throat: Yes posterior oropharynx normal and Yes tonsils normal (no TP congestion noted) Neck Neck: Yes no lymphadenopathy and Yes supple Resp Auscultation: clear to auscultation bilaterally, no rales and no wheezes Cardio Rate: regular rate Rhythm: regular rhythm Heart sounds: no murmurs GI Palpation (GI): Soft to palpation and nontender Auscultation: normal bowel sounds General: Yes no CVA tenderness Back/Spine/Pelvis Back: no CVA tenderness Skin Rashes: no rashes Extrem General: Yes no clubbing, cyanosis or edema Results Reviewed Results Reviewed: Laboratory Tests 04/02/23 10/15/23 10/15/23 08:33 08:39 08:45 WBC 4.2 L Hgb 15.8 Hct 46.4 Plt Count 147 L Sodium 141 Potassium 4.0 Creatinine 1.03 Estimated GFR > 60 Fasting Glucose 111 H Estimat Average Glucose 97 Calcium 9.7 AST 31 ALT 29 Triglycerides 60 Cholesterol 139 LDL Cholesterol, Calc 74 HDL Cholesterol 53 25-OH Vitamin D Total 38.4 TSH 1.22 Ur Specific [place] 1.020 Urine Protein Negative Urine Glucose (UA) Negative Urine Blood Small (1+) H Urine Nitrite Negative Ur Leukocyte Esterase Negative Assessment and Plan Assessment & Plan (1) Pure hypercholesterolemia: Code(s): E78.00 - Pure hypercholesterolemia, unspecified Plan: Results of his labs done a few days ago reviewed and discussed with patient Reinforced low cholesterol diet Continue Simvastatin 20 mg QD Will recheck his labs and fasting lipids in 6 months for follow up (2) Impaired fasting glucose: Code(s): R73.01 - Impaired fasting glucose Plan: His FBS was still elevated at 111 mg/dl on his recent labs but his HgbA1c was n ormal at 5.0% and 5.3% when checked previously Reinforced low calorie/low carb diet; exercise as tolerated (3) Benign essential microscopic hematuria: Code(s): R31.1 - Benign essential microscopic hematuria Plan: Asymptomatic Urine cytology have been normal when checked in the past - will continue to monitor this regularly Patient also has simple renal cysts on the right kidney seen incidentally on abdominal US done back in April 2022 (4) Simple hepatic cyst: Code(s): K76.89 - Other specified diseases of liver Plan: He also has small hepatic cysts seen on abdominal ultrasound done back in April 2022 - no further work ups or intervention is indicated at this time (5) Gilliam's esophagus: Comment: EGD with Bx done in August 2022 Code(s): K22.70 - 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 Qualifiers: Gilliam's esophagus type: without dysplasia Qualified Code(s): K22.70 - 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 Plan: (+) 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 Reinforced dietary restrictions He had a repeat EGD with Bx and colonoscopy done back in August 2022 - 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 although 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 He was started back on PPI to minimize the risk of progression of his Gilliam's esophagitis to esophageal cancer but he recently received a notice from his insurance company that his Pantoprazole is being moved to a higher tiered copay Will try switching him from Pantoprazole 40 mg QD to Lansoprazole 30 mg QD Follow up with GI as scheduled (6) Elevated LFTs: Code(s): R79.89 - Other specified abnormal findings of blood chemistry Plan: Advised that his LFTs are back to normal on his recent labs Have advised patient again to be watchful of his alcohol intake and to avoid taking large doses of acetaminophen or Tylenol Abdominal US done back in April 2022 revealed (+) diffusely increased hepatic echogenicity and sound attenuation consistent with diffuse hepatic steatosis Will recheck his LFTs again in 6 months for follow-up Plan Follow up in 6 months Orders: Orders Complete Blood Count Auto Diff 6 Months D64.9 - Anemia, unspecified Lipid Panel 6 Months E78.00 - Pure hypercholesterolemia, unspecified Comprehensive [place]. Panel Fast 6 Months E78.00 - Pure hypercholesterolemia, unspecified Hemoglobin A1c 6 Months R73.01 - Impaired fasting glucose UA CC w/rflx Micro + Cult 6 Months R30.0 - Dysuria Urine Cytology 6 Months R31.1 - Benign essential microscopic hematuria Medications: New lansoprazole 30 mg PO DAILY 90 days 90 caps 3RF Discontinued pantoprazole Discontinued Reason: Insurance Denied 40 mg PO DAILY 90 days 90 tabs 3RF K20.90 - Esophagitis, unspecified without bleeding, K22.70 - 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 Coding Level of Care Code Est Pt Level 4 (79629) Diagnoses Pure hypercholesterolemia E78.00 Impaired fasting glucose R73.01 Benign essential microscopic hematuria R31.1 Simple hepatic cyst K76.89 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 type: without dysplasia Elevated LFTs R79.89 Additional Codes PHAN-7 Assessment Billing - PHAN-7 Assessment Tool: PHAN-7 Assessment 24901 ([id number])
== END 2023-10-18 11:54 | disposition home or self-care (01) ==
PROVIDERS: PCP Internal Medicine; Visit Provider Internal Medicine
DX: E78.00 Pure hypercholesterolemia, unspecified (principal); R73.01 Impaired fasting glucose; R31.1 Benign essential microscopic hematuria; K76.89 Other specified diseases of liver; K22.70 Barrett's esophagus without dysplasia; R79.89 Other specified abnormal findings of blood chemistry
CPT/HCPCS: 99214

== ENCOUNTER 2024-04-14 08:32 | Outpatient (REF) | payer MEDICARE, SELFPAY ==
[2024-04-14 08:48] LABS: MANUAL DIFF FLAG NO
[2024-04-14 09:06] LABS: Urine Cytology See Pathology rpt
[2024-04-14 09:14] LABS: Appearance Urine Clear; Color Urine Dark Yellow; Glucose Urine UA Negative (Negative); Leukocyte Esterase Urine Negative (Negative); Nitrite Urine Negative (Negative); UMIC TRIGGER UACC YES; Urine Blood Small (1+) (Negative); Urine Ketones Trace mg/dL (Negative); Urine Protein Negative (Neg-Trace)
[2024-04-14 09:16] LABS: Basophils Percent Auto 0.5 % (0-2); Eosinophils Absolute Auto 0.1 X10*3/uL (0.0-0.4); Eosinophils Percent Auto 0.8 % (0-4); Hematocrit 46.9 % (42.0-52.0); Hemoglobin 16.2 g/dl (14.0-18.0); Imm Gran Abs Auto 0.02 X10*3/uL (0.00-0.03); Imm Gran Pct Auto 0.3 % (0.0-0.4); Lymphocytes Absolute Auto 1.1 X10*3/uL (1.2-4.9); Lymphocytes Percent Auto 18.2 % (20-40); Mean Corpuscular HGB Conc 34.5 g/dl (31.0-36.0); Mean Corpuscular Hemoglobin 33.1 pg (27.0-33.0); Mean Corpuscular Volume 95.9 fL (80.0-98.0); Mean Platelet Volume 10.2 fL (9.4-12.4); Monocytes Absolute Auto 0.4 X10*3/uL (0.1-1.2); Monocytes Percent Auto 7.2 % (2-11); Neutrophils Absolute Auto 4.3 x10*3/uL (2.0-8.3); Platelet Count 128 X10*3/uL (160-400); Red Blood Count 4.89 X10*6/uL (4.60-5.80); Red Cell Distribution Width 11.9 % (11.0-16.0); White Blood Count 5.9 X10*3/uL (4.8-10.8)
[2024-04-14 09:18] LABS: Bacteria Urine None Seen (None Seen); Hyaline Casts Urine 0-2 /LPF (0-2); Squamous Epithelial Cell Urine 0-2 /HPF (0-2); WBC Urine 0-5 /HPF (0-5)
[2024-04-14 09:22] LABS: Estimated Average Glucose 100 mg/dL; Hemoglobin A1C 121.4451 umol/L; Hemoglobin A1c % 5.1 % (<6.0); Total Hemoglobin (HGBA1C) 3821.5072 umol/L
[2024-04-14 09:56] LABS: Alanine Aminotransferase 28 U/L (0-40); Albumin Level 4.6 g/dL (3.5-5.0); Alkaline Phosphatase 46 U/L (39-117); Anion Gap 13 (12-20); Aspartate Amino Transferase 32 U/L (5-37); Blood Urea Nitrogen 20 mg/dL (9-16); Carbon Dioxide 28 mmol/L (22-29); Chloride 104 mmol/L (96-108); Cholesterol 144 mg/dL (<200); Estimated Glomerular Filt Rate > 60; Glucose Fasting 121 mg/dL (60-99); HDL Cholesterol 55 mg/dL (>40); LDL Cholesterol Calculated 79 mg/dL (<100); Potassium 5.1 mmol/L (3.3-5.1); Sodium 140 mmol/L (135-145); Total Protein 7.6 g/dL (6.5-8.0); Triglycerides 51 mg/dL (<150)
== END 2024-04-14 08:33 | disposition home or self-care (01) ==
LOC: HO.LAB 08:32
PROVIDERS: PCP Internal Medicine; Visit Provider Internal Medicine
DX: D64.9 Anemia, unspecified (principal); E78.00 Pure hypercholesterolemia, unspecified; R73.01 Impaired fasting glucose; R31.1 Benign essential microscopic hematuria
CPT/HCPCS: 36415; 80053; 80061; 81001; 83036; 85025; 88112

== ENCOUNTER 2024-04-23 10:28 | Outpatient (AMB) | payer MEDICARE, SELFPAY ==
--- NOTE | 2024-04-23 10:30 | A.OFFPC_ITS ---
Vital Signs 04/23/24 10:31 Height 5 ft 4 in Weight 118 lb BMI 20.3 BP 130/72 Blood Pressure Location Lt brachial Position Sitting Pulse 84 Pulse Source Pulse Oximeter Pulse Oximetry (%) 98 Oxygen Delivery Method Room Air Intake Visit Reasons: 6MOF\U Intake Note: Patient is here to follow up on IFG, Anemia, Hypercholesterolemia. Pt decline flu shot today. Brush Stainer Required: No Candlemaker: Not Required per policy Accompanied by: Self / Same As Patient Allergies No Known Allergies Allergy (Verified 04/23/24 11:12) Medication List - Last Reconciled 04/23/24 by Ilya Rodriguez MD aspirin 81 mg PO DAILY [id number] 1 tab PO DAILY omeprazole 20 mg PO DAILY 90 days simvastatin 20 mg PO BEDTIME Tobacco use date assessed: 04/23/24 Fall risk assessment: No Falls in past year Last assessed Fall Risk: 04/23/24 Dental Screening Dental Screen Date: 10/18/23 HPI 6MOF\U HPI Details Patient comes in today for his follow up visit States that he feels okay He denies any headaches or dizziness Denies any chest pains, no SOB No nausea/vomiting, no abdominal pain No change in bowel habits noted He had his follow up labs done a couple of weekends ago - to discuss his results [facility] Medical History Gilliam's esophagus Nocturia Benign essential microscopic hematuria Impaired fasting glucose Pure hypercholesterolemia Surgical History Hx of esophagogastroduodenoscopy (~09/15/22) Hx of colonoscopy (~09/15/22) Hx of tonsillectomy Family History Father Cardiovascular disease Social History Housing: House Alcohol intake: current Alcohol intake frequency: a few times a week Alcohol type: beer Patient Tobacco Use Status: Never used Tobacco e-Cigarette/Vaping Use: Never Used Second Hand Smoke Exposure: Yes service: Yes Current occupational status: retired Cognitive needs: No Hearing needs: Yes Vision needs: Yes (reading glasses) Questionnaire PHQ-9 Over the last 2 weeks, how often have you been bothered by any of the following problems? Depression Screening Interpretation: Negative Depression Screening Done: Yes Source: Developed by Drs. Ra Pan, Lindy Pederson, Rohan Nobles and colleagues, with an educational emma from [employer]. Thrive Questionnaire Date Thrive assessed: 10/18/23 THRIVE Score: 0 PHAN-7 AMB Questionnaire PHAN-7 Date PHAN - 7 assessed: 10/18/23 Source: Developed by Drs. Ra Pan, Lindy Pederson, Rohan Nobles and colleagues, with an educational emma from [employer]. Review of Systems Const Denies chills, Denies fatigue, Denies fever(s) and Denies headache(s) ENT Denies dysphagia, Denies dizziness, Denies otalgia, Denies headache(s), Denies neck pain, Denies odynophagia and Denies sore throat Card Denies chest pain, Denies palpitations and Denies dyspnea Resp Denies chest congestion, Denies cough and Denies dyspnea GI Denies abdominal pain, Denies constipation, Denies dysphagia, Denies heartburn, Denies diarrhea, Denies nausea, Denies odynophagia and Denies vomiting Denies dysuria, Denies nocturia and Denies urinary frequency Musc Denies back pain and Denies neck pain Skin/Breast Denies rash Neuro Denies dizziness and Denies headache(s) Endo Denies fatigue and Denies palpitations Physical exam (Primary Care) Vital Signs: Last Vital Signs Pulse 84 04/23/24 10:31 BP 130/72 04/23/24 10:31 Pulse Ox 98 04/23/24 10:31 Oxygen Delivery Method Room Air 04/23/24 10:31 BMI result Body Mass Index 20.3 Tobacco/Smoking Status: Tobacco use Status Tobacco use date assessed 04/23/24 04/23/24 10:35 Patient Tobacco Use Status Never used Tobacco 04/23/24 10:35 e-Cigarette/Vaping Use Never Used 04/23/24 10:35 Depression Screening Interpretation: Negative Thrive Assessment: Date of Thrive Assessment Date Thrive assessed 10/18/23 04/23/24 10:35 Const General: no acute distress and alert HENMT Ears: TM's normal bilaterally and EAC's normal Throat: Yes posterior oropharynx normal and Yes tonsils normal (no TP congestion noted) Neck Neck: Yes no lymphadenopathy and Yes supple Thyroid: Thyroid normal Resp Auscultation: clear to auscultation bilaterally, no rales and no wheezes Cardio Rate: regular rate Rhythm: regular rhythm Heart sounds: no murmurs GI Palpation (GI): Soft to palpation and nontender Auscultation: normal bowel sounds General: Yes no CVA tenderness Back/Spine/Pelvis Back: no CVA tenderness Thoracic/Lumbar Spine: No lumbar spinal tenderness Skin Rashes: no rashes Extrem General: Yes no clubbing, cyanosis or edema Results Reviewed Results Reviewed: Laboratory Tests 10/15/23 04/14/24 04/14/24 08:39 08:45 08:46 WBC 5.9 Hgb 16.2 Hct 46.9 Plt Count 128 L Sodium 140 Potassium 5.1 D Creatinine 0.98 Estimated GFR > 60 Fasting Glucose 121 H Hemoglobin A1c % 5.1 Calcium 10.0 AST 32 ALT 28 Triglycerides 51 Cholesterol 144 LDL Cholesterol, Calc 79 HDL Cholesterol 55 25-OH Vitamin D Total 38.4 TSH 1.22 Ur Specific [place] 1.020 Urine Protein Negative Urine Glucose (UA) Negative Urine Blood Small (1+) H Urine Nitrite Negative Ur Leukocyte Esterase Negative Coding Level of Care Code Est Pt Level 4 (43498) Diagnoses Pure hypercholesterolemia E78.00 Impaired fasting glucose R73.01 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 K22.70 Gililam's esophagus type: without dysplasia Benign essential microscopic hematuria R31.1 Simple hepatic cyst K76.89 Elevated LFTs R79.89 Assessment & Plan Assessment & Plan (1) Pure hypercholesterolemia: Code(s): E78.00 - Pure hypercholesterolemia, unspecified Category: Medical Plan: Results of his labs done a couple of weekends ago reviewed and discussed with patient Reinforced low cholesterol diet Continue Simvastatin 20 mg QD Will recheck his labs and fasting lipids in 6 months for follow up (2) Impaired fasting glucose: Code(s): R73.01 - Impaired fasting glucose Category: Medical Plan: His FBS was still elevated at 121 mg/dl on his recent labs but his HgbA1c remains normal at 5.1% on his labs done recently; HgbA1c was also normal at 5.0% and 5.3% when checked previously Reinforced low calorie/low carb diet; exercise as tolerated (3) Gilliam's esophagus: Comment: EGD with Bx done in August 2022 Code(s): K22.70 - 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 Category: Medical Qualifiers: Gilliam's esophagus type: without dysplasia Qualified Code(s): K22.70 - 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 Plan: (+) 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 Reinforced dietary restrictions He had a repeat EGD with Bx and colonoscopy done back in August 2022 - 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 although 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 He was started back on PPI to minimize the risk of progression of his Gilliam's esophagitis to esophageal cancer - is currently on Omeprazole 20 mg QD Follow up with GI as scheduled (4) Benign essential microscopic hematuria: Code(s): R31.1 - Benign essential microscopic hematuria Category: Medical Plan: Asymptomatic Urine cytology have been normal when checked in the past - will continue to monitor this regularly Patient also has simple renal cysts on the right kidney seen incidentally on abdominal US done back in April 2022 (5) Simple hepatic cyst: Code(s): K76.89 - Other specified diseases of liver Category: Medical Plan: He also has small hepatic cysts seen on abdominal ultrasound done back in April 2022 - no further work ups or intervention is indicated at this time (6) Elevated LFTs: Code(s): R79.89 - Other specified abnormal findings of blood chemistry Category: Medical Plan: His LFTs have remained normal on his recent labs Have advised patient again to be watchful of his alcohol intake and to avoid taking large doses of acetaminophen or Tylenol Abdominal US done back in April 2022 revealed (+) diffusely increased hepatic echogenicity and sound attenuation consistent with diffuse hepatic steatosis Will recheck his LFTs again in 6 months for follow-up Plan Follow up in 6 months Orders: Orders Complete Blood Count Auto Diff 6 Months D64.9 - Anemia, unspecified Comprehensive [place]. Panel Fast 6 Months E78.00 - Pure hypercholesterolemia, unspecified UA CC w/rflx Micro + Cult 6 Months R30.0 - Dysuria Lipid Panel 6 Months E78.00 - Pure hypercholesterolemia, unspecified Hemoglobin A1c 6 Months R73.01 - Impaired fasting glucose Vitamin B12 and Folate 6 Months E53.8 - Deficiency of other specified B group vitamins Vitamin D 25-OH Total 6 Months E55.9 - Vitamin D deficiency, unspecified
[2024-04-23 10:31] VITALS: BP 130/72; PULSE 84; O2SAT 98; BMI 20.3
== END 2024-04-23 11:20 | disposition home or self-care (01) ==
PROVIDERS: PCP Internal Medicine; Visit Provider Internal Medicine
DX: E78.00 Pure hypercholesterolemia, unspecified (principal); R73.01 Impaired fasting glucose; K22.70 Barrett's esophagus without dysplasia; R31.1 Benign essential microscopic hematuria; K76.89 Other specified diseases of liver; R79.89 Other specified abnormal findings of blood chemistry

== ENCOUNTER → 2024-04-23 10:28 | Outpatient (BNVA) | payer MEDICARE, SELFPAY | PROVIDERS: PCP Internal Medicine; Visit Provider Internal Medicine | DX: E78.00 Pure hypercholesterolemia, unspecified (principal); R73.01 Impaired fasting glucose; K22.70 Barrett's esophagus without dysplasia; R31.1 Benign essential microscopic hematuria; K76.89 Other specified diseases of liver; R79.89 Other specified abnormal findings of blood chemistry | CPT/HCPCS: 99212 ==

== ENCOUNTER 2024-10-13 08:34 | Outpatient (REF) | payer MEDICARE, SELFPAY ==
--- OUTSIDE RECORDS SUMMARY | 2024-10-13 08:37 | XMS_ITS | Patient Health Record ---
Author Organization [facility] Address [address] [place] [address] Care Team Providers Care Design Assembler Name Role Phone Michael VILLEGAS, [place] Primary Care Provider Ra Geronimo Unavailable [phone] Allergies No Known Allergies Reason For Referral No Information Medications Medication SIG (Take, Route, Frequency, Duration) Notes Start Date End Date Status Simvastatin 20 MG Oral for 90 Active Aspirin Adult Low Dose 81 MG 1 tablet Orally Once a day for 30 day(s) Active Immunizations Vaccine Route Administration Date Status Comme nts Influenza Unknown 07/29/2022 Refused Social History Tobacco Use: Social History Observation Description Date Details (start date - stop date) Never Smoker NA - NA Tobacco Use/Smoking Question Answer Notes Patient is a nonsmoker Alcohol Screen Question Answer Notes Did you have a drink contain ing alcohol in the past year? Yes How often did you have a dri nk containing alcohol in the past year? Never (0 point) How many drinks did you have on a typical day when you were drinking in the past year? 1 or 2 drinks (0 point) How often did you have 6 or more drinks on one occasion in the past year? 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 confirmed Problem Diverticular disease of colon (533259794) Diverticulosis of large intestine without perforation or abscess without bleeding (K57.30) Active confirmed Problem Gastroesophageal reflux disease (684490877) Gastroesophageal reflux disease (K21.9) Active confirmed Problem Gastritis (7693885) Gastritis (K29.70) Active c onfirmed Problem 163907274 Abdominal pain, generalized (R10.84) Active confirmed Plan Of Treatment Pending Test Test Name Order Date Pathology 09/15/2022 Future Test Test Name Order Date UPPER GI ENDOSCOPY 07/29/2022 COLONOSCOPY 07/29/2022 Insurance Providers Payer Name Payer Address Payer Phone Subscriber Number Group Number Insured Name Patient Relationship to Insured Coverage Start Date Coverage End Date [facility] [address] [place] [address] [phone] [id number] ALCON CONTRERAS Self - patient is the insured Medical (General) History Medical History History ICD Code Denies OR,DM,CVA,Lung disease,renal dise ase Negative colonoscopy in 2008 Surgical History Surgery Date(Month/Year) Tonsillectomy
[2024-10-13 09:10] LABS: Basophils Absolute Auto 0.1 X10*3/uL (0.0-0.2); Basophils Percent Auto 0.9 % (0-2); Eosinophils Absolute Auto 0.2 X10*3/uL (0.0-0.4); Eosinophils Percent Auto 3.2 % (0-4); Hemoglobin 15.7 g/dl (14.0-18.0); Imm Gran Abs Auto 0.01 X10*3/uL (0.00-0.03); Imm Gran Pct Auto 0.2 % (0.0-0.4); Lymphocytes Absolute Auto 1.3 X10*3/uL (1.2-4.9); Lymphocytes Percent Auto 23.6 % (20-40); Mean Corpuscular HGB Conc 34.9 g/dl (31.0-36.0); Mean Corpuscular Hemoglobin 33.2 pg (27.0-33.0); Mean Corpuscular Volume 95.1 fL (80.0-98.0); Mean Platelet Volume 10.5 fL (9.4-12.4); Monocytes Absolute Auto 0.5 X10*3/uL (0.1-1.2); Monocytes Percent Auto 9.4 % (2-11); Neutrophils Absolute Auto 3.3 x10*3/uL (2.0-8.3); Neutrophils Percent Auto 62.7 % (45-73); Red Blood Count 4.73 X10*6/uL (4.60-5.80); White Blood Count 5.3 X10*3/uL (4.8-10.8)
[2024-10-13 09:11] LABS: Platelet Count 117 X10*3/uL (160-400)
[2024-10-13 09:16] LABS: Appearance Urine Clear; Color Urine Dark Yellow; Glucose Urine UA Negative (Negative); Leukocyte Esterase Urine Negative (Negative); Nitrite Urine Negative (Negative); PH 5.5 (5.0-9.0); Specific Gravity - Urine 1.025 (1.005-1.025); Urine Blood Negative (Negative); Urine Ketones Trace mg/dL (Negative); Urine Protein Negative (Neg-Trace)
[2024-10-13 10:03] LABS: Alanine Aminotransferase 36 U/L (0-40); Albumin Level 4.5 g/dL (3.5-5.0); Alkaline Phosphatase 45 U/L (39-117); Aspartate Amino Transferase 40 U/L (5-37); Bilirubin Total 0.9 mg/dL (0.0-1.0); Blood Urea Nitrogen 26 mg/dL (9-16); Calcium 9.8 mg/dL (8.4-10.2); Cholesterol 142 mg/dL (<200); Estimated Glomerular Filt Rate > 60; Glucose Fasting 109 mg/dL (60-99); HDL Cholesterol 56 mg/dL (>40); LDL Cholesterol Calculated 78 mg/dL (<100); Total Protein 7.3 g/dL (6.5-8.0); Triglycerides 41 mg/dL (<150)
[2024-10-13 10:12] LABS: Vitamin D 25-OH Total 43.7 ng/mL (>30)
[2024-10-13 10:13] LABS: Estimated Average Glucose 97 mg/dL; Folate > 20.0 ng/mL (> or = 4.0); Hemoglobin A1C 137.2121 umol/L; Vitamin B12 923 pg/mL (200-900)
[2024-10-13 10:24] LABS: Anion Gap 13 (12-20)
[2024-10-13 10:32] LABS: Carbon Dioxide 23 mmol/L (22-29); Chloride 107 mmol/L (96-108); Potassium 4.5 mmol/L (3.3-5.1); Sodium 139 mmol/L (135-145)
== END 2024-10-13 08:35 | disposition home or self-care (01) ==
LOC: HO.LAB 08:34
PROVIDERS: PCP Internal Medicine; Visit Provider Internal Medicine
DX: D64.9 Anemia, unspecified (principal); E78.00 Pure hypercholesterolemia, unspecified; R30.0 Dysuria; R73.01 Impaired fasting glucose; E53.8 Deficiency of other specified B group vitamins; E55.9 Vitamin D deficiency, unspecified
CPT/HCPCS: 36415; 80053; 80061; 81003; 82306; 82607; 82746; 83036; 85025

== ENCOUNTER 2024-10-22 09:49 | Outpatient (AMB) | payer MEDICARE, SELFPAY ==
[2024-10-22 09:51] VITALS: BP 122/66; PULSE 68; O2SAT 97; BMI 20.8
--- NOTE | 2024-10-22 09:51 | MHC.PC.OV ---
Vital Signs 10/22/24 09:51 Height 5 ft 4 in Weight 121 lb 6 oz BMI 20.8 BP 122/66 Blood Pressure Location Lt brachial Position Sitting Pulse 68 Pulse Source Pulse Oximeter Pulse Oximetry (%) 97 Oxygen Delivery Method Room Air Intake Visit Reasons: 6 Months f/u Environmental Health Specialist Required: No Accompanied by: Self / Same As Patient Allergies No Known Allergies Allergy (Verified 10/22/24 10:14) Medication List - Last Reconciled 10/22/24 by Ilya Rodriguez MD aspirin 81 mg PO DAILY miyxmeemmqam-ubkavlyn-akcbyx 1 tab PO DAILY omeprazole 20 mg PO DAILY 90 days simvastatin 20 mg PO BEDTIME Tobacco use date assessed: 10/22/24 Fall risk assessment: No Falls in past year Last assessed Fall Risk: 10/22/24 Dental Screening Dental Screen Date: 10/22/24 Did you have a dental visit in the last 12 months?: Yes Did you have a dental problem in the last 6 months where you did not have access to dental care?: No Was dental information given to patient?: Patient has dentist HPI 6 Months f/u HPI Details Patient comes in today for his follow up visit States that he feels okay He denies any headaches or dizziness Denies any chest pains, no SOB No nausea/vomiting, no abdominal pain No change in bowel habits noted He had his follow up labs done a couple of weekends ago - to discuss his results [facility] Medical History Gilliam's esophagus Nocturia Benign essential microscopic hematuria Impaired fasting glucose Pure hypercholesterolemia Surgical History Hx of esophagogastroduodenoscopy (~09/15/22) Hx of colonoscopy (~09/15/22) Hx of tonsillectomy Family History Father Cardiovascular disease Social History Housing: House Alcohol intake: current Alcohol intake frequency: a few times a week Alcohol type: beer Patient Tobacco Use Status: Never used Tobacco e-Cigarette/Vaping Use: Never Used Second Hand Smoke Exposure: Yes service: Yes Current occupational status: retired Cognitive needs: No Hearing needs: Yes Vision needs: Yes (reading glasses) Questionnaire PHQ-9 Over the last 2 weeks, how often have you been bothered by any of the following problems? 1. Little interest or pleasure in doing things: not at all 2. Feeling down, depressed, or hopeless: not at all 3. Trouble falling or staying asleep, or sleeping too much: not at all 4. Feeling tired or having little energy: not at all 5. Poor appetite or overeating: not at all 6. Feeling bad about yourself - or that you are a failure or have let yourself or your family down: not at all 7. Trouble concentrating on things, such as reading the newspaper or watching television: not at all 8. Moving or speaking so slowly that other people could have noticed. Or the opposite - being so fidgety or restless that you have been moving around a lot more than usual: not at all 9. Thoughts that you would be better off or of hurting yourself in some way: not at all Total score: 0 Depression Screening Interpretation: Negative Depression Screening Done: Yes 76807 - PHQ-9 Billing: Yes Source: Developed by Drs. Ra Pan, Lindy Pederson, Rohan Nobles and colleagues, with an educational emma from [employer]. Thrive Questionnaire Date Thrive assessed: 10/22/24 I am a: Patient What is your living situation today?: I have a steady place to live Within the past 12 months, did the food you bought not last and you didn't have the money to get more?: Never true Within the past 12 months, did you worry whether your food would run out before you got money to buy more?: Never true Do you have trouble paying for medicines?: No Do you have trouble getting transportation to medical appointments?: No Do you have trouble paying your heating and electricity bill?: No Do you have trouble taking care of your child, family member or friend?: No Do you have trouble with day-to-day activities such as bathing, preparing meals, shopping, managing finances, etc.?: No Are you currently unemployed and looking for a job?: No Are you interested in more education?: No Please select the resources that you would like help with: None Currently or been in a relationship where the following occur: No concerns reported THRIVE Score: 0 AUDIT C Alcohol Use Questionnaire (AUDIT-C) 1. How often do you have a drink containing alcohol?: 2-3 times a week 2. How many drinks containing alcohol do you have on a typical day when you are drinking?: 1 or 2 3. How often do you have six or more drinks on one occasion?: Never Total Score: 3 Score Reviewed/Action Taken: Yes PHAN-7 AMB Questionnaire PHAN-7 Date PHAN - 7 assessed: 10/22/24 Feeling nervous, anxious, or on edge: 0 = Not at all Not being able to stop or control worryin = Not at all Worrying too much about different things: 0 = Not at all Trouble relaxin = Not at all Being so restless that it is hard to sit still: 0 = Not at all Becoming easily annoyed or irritable: 0 = Not at all Feeling afraid as if something awful might happen: 0 = Not at all Total PHAN-7 score (0-4 normal; 5-9 mild; 10-14 moderate; 15-21 severe): 0 Source: Developed by Drs. Ra Pan, Lindy Pederson, Rohan Nobles and colleagues, with an educational emma from [employer]. Review of Systems Const Denies chills, Denies fatigue, Denies fever(s) and Denies headache(s) ENT Denies dysphagia, Denies dizziness, Denies otalgia, Denies headache(s), Denies neck pain, Denies odynophagia and Denies sore throat Card Denies chest pain, Denies palpitations and Denies dyspnea Resp Denies chest congestion, Denies cough and Denies dyspnea GI Denies abdominal pain, Denies constipation, Denies dysphagia, Denies heartburn, Denies diarrhea, Denies nausea, Denies odynophagia and Denies vomiting Denies dysuria, Denies nocturia and Denies urinary frequency Musc Denies back pain and Denies neck pain Skin/Breast Denies rash Neuro Denies dizziness and Denies headache(s) Endo Denies fatigue and Denies palpitations Physical exam (Primary Care) Vital Signs: Last Vital Signs Pulse 68 10/22/24 09:51 BP 122/66 10/22/24 09:51 Pulse Ox 97 04/28/25 09:51 Oxygen Delivery Method Room Air 10/22/24 09:51 BMI result Body Mass Index 20.8 Tobacco/Smoking Status: Tobacco use Status Tobacco use date assessed 10/22/24 10/22/24 10:08 Patient Tobacco Use Status Never used Tobacco 10/22/24 09:52 e-Cigarette/Vaping Use Never Used 10/22/24 09:52 PHQ-9: PHQ-9 Score PHQ-9: Total score 0 10/22/24 10:18 Depression Screening Interpretation: Negative Thrive Assessment: Date of Thrive Assessment Date Thrive assessed 10/22/24 10/22/24 10:08 Currently or been in a relationship where the following occur: No concerns reported Const General: no acute distress and alert HENMT Ears: TM's normal bilaterally and EAC's normal Throat: Yes posterior oropharynx normal and Yes tonsils normal (no TP congestion noted) Neck Neck: Yes supple and No lymphadenopathy Thyroid: Thyroid normal Resp Auscultation: clear to auscultation bilaterally, no rales and no wheezes Cardio Rate: regular rate Rhythm: regular rhythm Heart sounds: no murmurs GI Palpation (GI): Soft to palpation and nontender Auscultation: normal bowel sounds General: Yes no CVA tenderness Back/Spine/Pelvis Back: no CVA tenderness Thoracic/Lumbar Spine: No lumbar spinal tenderness Skin Rashes: no rashes Extrem General: Yes no clubbing, cyanosis or edema Results Reviewed Results Reviewed: Laboratory Tests 10/13/24 08:50 WBC 5.3 Hgb 15.7 Hct 45.0 Plt Count 117 L Sodium 139 Potassium 4.5 Creatinine 0.97 Estimated GFR > 60 Fasting Glucose 109 H Hemoglobin A1c % 5.0 Calcium 9.8 AST 40 H ALT 36 Triglycerides 41 Cholesterol 142 LDL Cholesterol, Calc 78 HDL Cholesterol 56 Vitamin B12 923 H 25-OH Vitamin D Total 43.7 Ur Specific [place] 1.025 Urine Protein Negative Urine Glucose (UA) Negative Urine Blood Negative Urine Nitrite Negative Ur Leukocyte Esterase Negative Coding Level of Care Code Est Pt Level 4 (75777) Diagnoses Pure hypercholesterolemia E78.00 Impaired fasting glucose R73.01 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 type: without dysplasia Benign essential microscopic hematuria R31.1 Simple hepatic cyst K76.89 Elevated LFTs R79.89 Additional Codes PHQ-9 - 89191 - PHQ-9 Billing: Yes ([id number]) Assessment & Plan Assessment & Plan (1) Pure hypercholesterolemia: Code(s): E78.00 - Pure hypercholesterolemia, unspecified Category: Medical Plan: Results of his labs done a couple of weekends ago reviewed and discussed with patient Reinforced low cholesterol diet Continue Simvastatin 20 mg QD Will recheck his labs and fasting lipids in 6 months for follow up (2) Impaired fasting glucose: Code(s): R73.01 - Impaired fasting glucose Category: Medical Plan: His FBS was still elevated at 109 mg/dl on his recent labs but his HgbA1c remains normal at 5.0% on his labs done recently; HgbA1c was also normal at 5.1% and 5.0% when checked previously Reinforced low calorie/low carb diet; exercise as tolerated (3) Gilliam's esophagus: Comment: EGD with Bx done in August 2022 Code(s): K22.70 - 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 Category: Medical Qualifiers: Gilliam's esophagus type: without dysplasia Qualified Code(s): K22.70 - 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 Plan: (+) 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 Reinforced dietary restrictions He had a repeat EGD with Bx and colonoscopy done back in August 2022 - 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 although 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 He was started back on PPI to minimize the risk of progression of his Gilliam's esophagitis to esophageal cancer - is currently maintained on Omeprazole 20 mg QD Follow up with GI as scheduled for continuing surveillance (4) Benign essential microscopic hematuria: Code(s): R31.1 - Benign essential microscopic hematuria Category: Medical Plan: Asymptomatic Urine cytology have been normal when checked in the past - will continue to monitor this regularly Patient also has simple renal cysts on the right kidney seen incidentally on abdominal US done back in April 2022 (5) Simple hepatic cyst: Code(s): K76.89 - Other specified diseases of liver Category: Medical Plan: He also has small hepatic cysts seen on abdominal ultrasound done back in April 2022 - no further work ups or intervention is indicated at this time (6) Elevated LFTs: Code(s): R79.89 - Other specified abnormal findings of blood chemistry Category: Medical Plan: His LFTs have remained normal on his recent labs Have advised patient again to be watchful of his alcohol intake and to avoid taking large doses of acetaminophen or Tylenol Abdominal US done back in April 2022 revealed (+) diffusely increased hepatic echogenicity and sound attenuation consistent with diffuse hepatic steatosis Will continue to monitor his LFTs regularly Plan Follow up in 6 months Orders: Orders Comprehensive [place]. Panel Fast 6 Months E78.00 - Pure hypercholesterolemia, unspecified Lipid Panel 6 Months E78.00 - Pure hypercholesterolemia, unspecified TSH reflex Free T4 6 Months E78.00 - Pure hypercholesterolemia, unspecified UA CC w/rflx Micro + Cult 6 Months R30.0 - Dysuria Complete Blood Count Auto Diff 6 Months D64.9 - Anemia, unspecified
== END 2024-10-22 10:22 | disposition home or self-care (01) ==
PROVIDERS: PCP Internal Medicine; Visit Provider Internal Medicine
DX: E78.00 Pure hypercholesterolemia, unspecified (principal); R73.01 Impaired fasting glucose; K22.70 Barrett's esophagus without dysplasia; R31.1 Benign essential microscopic hematuria; K76.89 Other specified diseases of liver; R79.89 Other specified abnormal findings of blood chemistry

== ENCOUNTER → 2024-10-22 09:49 | Outpatient (BNVA) | payer MEDICARE, SELFPAY | PROVIDERS: PCP Internal Medicine; Visit Provider Internal Medicine | DX: E78.00 Pure hypercholesterolemia, unspecified (principal); R73.01 Impaired fasting glucose; K22.70 Barrett's esophagus without dysplasia; R31.1 Benign essential microscopic hematuria; K76.89 Other specified diseases of liver; R79.89 Other specified abnormal findings of blood chemistry; Z79.899 Other long term (current) drug therapy | CPT/HCPCS: 96127; 99212 ==

== ENCOUNTER 2025-04-13 08:32 | Outpatient (REF) | payer MEDICARE, SELFPAY ==
--- OUTSIDE RECORDS SUMMARY | 2025-04-13 08:35 | XMS_ITS | Patient Health Record ---
Author Organization [facility] Address [address] [place] [address] Care Team Providers Care Nuclear Medicine Tech Name Role Phone Michael VILLEGAS, [place] Primary Care Provider Ra Geronimo Unavailable [phone] Allergies No Known Allergies Reason For Referral No Information Medications Medication SIG (Take, Route, Frequency, Duration) Notes Start Date End Date Status Simvastatin 20 MG Oral; Duration: 90 Active Aspirin Adult Low Dose 81 MG 1 tablet Orally Once a day; Duration: 30 day(s) Active Immunizations Vaccine Route Administration [...] Problem Status W/U Status Risk Notes Problem Colon cancer screening (510217080) Colon cancer screening (Z12.11) Active confirmed Problem Weight loss (651183520) Weight loss (R63.4) Active confirmed Problem 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 confirmed Problem Diverticular disease of colon (303096189) Diverticulosis of large intestine without perforation or abscess without bleeding (K57.30) Active confirmed Problem Gastroesophageal reflux disease (928151306) Gastroesophageal reflux disease (K21.9) Active confirmed Problem Gastritis (8329090) Gastritis (K29.70) Active c onfirmed Problem Generalized abdominal pain (409313112) Abdominal pain, generalized (R10.84) Active confirmed Plan Of Treatment Pending Test Test Name Order Date Pathology 09/15/2022 Future Test Test Name Order Date UPPER GI ENDOSCOPY 07/29/2022 COLONOSCOPY 07/29/2022 Insurance Providers Payer Name Payer Address Payer Phone Subscriber Number Group Number Insured Name Patient Relationship to Insured Coverage Start Date Coverage End Date [facility] [address] [place] [address] [id number] ALCON CONTRERAS Self - patient is the insured Medical (General) History Medical History History ICD Code Denies CT,DM,CVA,Lung disease,renal dise ase Negative colonoscopy in 2008 Surgical History Surgery Date(Month/Year) Tonsillectomy
[2025-04-13 09:24] LABS: MANUAL DIFF FLAG NO
[2025-04-13 10:07] LABS: Hematocrit 44.8 % (42.0-52.0); Hemoglobin 15.1 g/dl (14.0-18.0); Imm Gran Abs Auto 0.01 X10*3/uL (0.00-0.03); Imm Gran Pct Auto 0.2 % (0.0-0.4); Lymphocytes Absolute Auto 0.9 X10*3/uL (1.2-4.9); Mean Corpuscular HGB Conc 33.7 g/dl (31.0-36.0); Mean Corpuscular Hemoglobin 32.0 pg (27.0-33.0); Mean Corpuscular Volume 94.9 fL (80.0-98.0); NRBC Abs Auto 0.000 X10*3/uL (0.0-0.012); NRBC Pct Auto 0.0 /100WBC (0.0-0.2); Platelet Count 124 X10*3/uL (160-400); Red Blood Count 4.72 X10*6/uL (4.60-5.80); White Blood Count 4.0 X10*3/uL (4.8-10.8)
[2025-04-13 10:48] LABS: Alanine Aminotransferase 56 U/L (0-40); Albumin Level 4.9 g/dL (3.5-5.0); Alkaline Phosphatase 41 U/L (39-117); Anion Gap 16 (12-20); Aspartate Amino Transferase 49 U/L (5-37); Blood Urea Nitrogen 19 mg/dL (9-16); Calcium 10.1 mg/dL (8.4-10.2); Carbon Dioxide 24 mmol/L (22-29); Chloride 105 mmol/L (96-108); Cholesterol 145 mg/dL (<200); Estimated Glomerular Filt Rate > 60; HDL Cholesterol 56 mg/dL (>40); Potassium 5.2 mmol/L (3.3-5.1); Sodium 140 mmol/L (135-145); Total Protein 7.5 g/dL (6.5-8.0); Triglycerides 44 mg/dL (<150)
[2025-04-13 10:51] LABS: Appearance Urine Clear; Glucose Urine UA Negative (Negative); PH 5.0 (5.0-9.0); Specific Gravity - Urine 1.020 (1.005-1.025)
== END 2025-04-13 08:33 | disposition home or self-care (01) ==
LOC: HO.LAB 08:32
PROVIDERS: PCP Internal Medicine; Visit Provider Internal Medicine
DX: R30.0 Dysuria (principal); E78.00 Pure hypercholesterolemia, unspecified; D64.9 Anemia, unspecified
CPT/HCPCS: 36415; 80053; 80061; 81003; 84443; 85025

== ENCOUNTER 2025-04-29 15:31 | Outpatient (AMB) | payer MEDICARE, SELFPAY ==
[2025-04-29 15:35] VITALS: BP 130/90; PULSE 91; RESP 18; TEMP 36.3; O2SAT 97; BMI 20.1
--- NOTE | 2025-04-29 15:35 | MHC.PC.OV ---
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 Accompanied by: Self / Same As Patient Allergies No Known Allergies Allergy (Verified 04/29/25 16:12) Medication List - Last Reconciled 04/29/25 by Ilya Rodriguez MD aspirin 81 mg PO DAILY vdsrrcsifsng-yyoepzfz-wosmei 1 tab PO DAILY omeprazole 20 mg PO DAILY 90 days simvastatin 20 mg PO BEDTIME Tobacco use date assessed: 04/29/25 Fall risk assessment: No Falls in past year Last assessed Fall Risk: 04/29/25 Dental Screening Dental Screen Date: 04/29/25 HPI 6 Months f/u HPI Details Patient comes in today for his follow up visit States that he feels okay He denies any headaches or dizziness Denies any chest pains, no increased SOB No nausea/vomiting, no abdominal pain No change in bowel habits noted He had his follow up labs done a couple of weeks ago - to discuss his results [facility] Medical History Gilliam's esophagus Nocturia Benign essential microscopic hematuria Impaired fasting glucose Pure hypercholesterolemia Surgical History Hx of esophagogastroduodenoscopy (~09/15/22) Hx of colonoscopy (~09/15/22) Hx of tonsillectomy Family History Father Cardiovascular disease Social History Housing: House Alcohol intake: current Alcohol intake frequency: a few times a week Alcohol type: beer Patient Tobacco Use Status: Never used Tobacco e-Cigarette/Vaping Use: Never Used Second Hand Smoke Exposure: Yes service: Yes Current occupational status: retired Cognitive needs: No Hearing needs: Yes Vision needs: Yes (reading glasses) Questionnaire PHQ-9 Over the last 2 weeks, how often have you been bothered by any of the following problems? 1. Little interest or pleasure in doing things: not at all 2. Feeling down, depressed, or hopeless: not at all 3. Trouble falling or staying asleep, or sleeping too much: not at all 4. Feeling tired or having little energy: not at all 5. Poor appetite or overeating: not at all 6. Feeling bad about yourself - or that you are a failure or have let yourself or your family down: not at all 7. Trouble concentrating on things, such as reading the newspaper or watching television: not at all 8. Moving or speaking so slowly that other people could have noticed. Or the opposite - being so fidgety or restless that you have been moving around a lot more than usual: not at all 9. Thoughts that you would be better off or of hurting yourself in some way: not at all Total score: 0 Depression Screening Interpretation: Negative Depression Screening Done: Yes 05353 - PHQ-9 Billing: Yes Source: Developed by Drs. Ra Pan, Lindy Pederson, Rohan Nobles and colleagues, with an educational emma from [employer]. Thrive Questionnaire Date Thrive assessed: 10/22/24 I am a: Patient What is your living situation today?: I have a steady place to live Within the past 12 months, did the food you bought not last and you didn't have the money to get more?: Never true Within the past 12 months, did you worry whether your food would run out before you got money to buy more?: Never true Do you have trouble paying for medicines?: No Do you have trouble getting transportation to medical appointments?: No Do you have trouble paying your heating and electricity bill?: No Do you have trouble taking care of your child, family member or friend?: No Do you have trouble with day-to-day activities such as bathing, preparing meals, shopping, managing finances, etc.?: No Are you currently unemployed and looking for a job?: No Are you interested in more education?: No Please select the resources that you would like help with: None Currently or been in a relationship where the following occur: No concerns reported THRIVE Score: 0 AUDIT C Alcohol Use Questionnaire (AUDIT-C) 1. How often do you have a drink containing alcohol?: 2-3 times a week 2. How many drinks containing alcohol do you have on a typical day when you are drinking?: 1 or 2 3. How often do you have six or more drinks on one occasion?: Never Total Score: 3 Score Reviewed/Action Taken: Yes PHAN-7 AMB Questionnaire PHAN-7 Date PHAN - 7 assessed: 10/22/24 Feeling nervous, anxious, or on edge: 0 = Not at all Not being able to stop or control worryin = Not at all Worrying too much about different things: 0 = Not at all Trouble relaxin = Not at all Being so restless that it is hard to sit still: 0 = Not at all Becoming easily annoyed or irritable: 0 = Not at all Feeling afraid as if something awful might happen: 0 = Not at all Total PHAN-7 score (0-4 normal; 5-9 mild; 10-14 moderate; 15-21 severe): 0 Source: Developed by Drs. Ra Pan, Lindy Pederson, Rohan Nobles and colleagues, with an educational emma from [employer]. Review of Systems Const Denies chills, Denies fatigue, Denies fever(s) and Denies headache(s) ENT Denies dysphagia, Denies dizziness, Denies otalgia, Denies headache(s), Denies neck pain, Denies odynophagia and Denies sore throat Card Denies chest pain, Denies palpitations and Denies dyspnea Resp Denies chest congestion, Denies cough and Denies dyspnea GI Denies abdominal pain, Denies constipation, Denies dysphagia, Denies heartburn, Denies diarrhea, Denies nausea, Denies odynophagia and Denies vomiting Denies dysuria, Denies nocturia and Denies urinary frequency Musc Denies back pain and Denies neck pain Skin/Breast Denies rash Neuro Denies dizziness and Denies headache(s) Endo Denies fatigue and Denies palpitations Physical exam (Primary Care) Vital Signs: Last Vital Signs Temp 97.3 F 04/29/25 15:35 Pulse 91 04/29/25 15:35 Resp 18 04/29/25 15:35 BP 130/90 H 04/29/25 15:35 Pulse Ox 97 04/29/25 15:35 Oxygen Delivery Method Room Air 04/29/25 15:35 BMI result Body Mass Index 20.1 Tobacco/Smoking Status: Tobacco use Status Tobacco use date assessed 04/29/25 04/29/25 15:40 Patient Tobacco Use Status Never used Tobacco 04/29/25 15:40 e-Cigarette/Vaping Use Never Used 04/29/25 15:40 PHQ-9: PHQ-9 Score PHQ-9: Total score 0 04/29/25 16:13 Depression Screening Interpretation: Negative Thrive Assessment: Date of Thrive Assessment Date Thrive assessed 10/22/24 04/29/25 15:40 Currently or been in a relationship where the following occur: No concerns reported Const General: no acute distress and alert HENMT Ears: TM's normal bilaterally and EAC's normal Throat: Yes posterior oropharynx normal and Yes tonsils normal (no TP congestion noted) Neck Neck: Yes supple and No lymphadenopathy Thyroid: Thyroid normal Resp Auscultation: clear to auscultation bilaterally, no rales and no wheezes Cardio Rate: regular rate Rhythm: regular rhythm Heart sounds: no murmurs GI Palpation (GI): Soft to palpation and nontender Auscultation: normal bowel sounds General: Yes no CVA tenderness Back/Spine/Pelvis Back: no CVA tenderness Thoracic/Lumbar Spine: No lumbar spinal tenderness Skin Rashes: no rashes Extrem General: Yes no clubbing, cyanosis or edema Results Reviewed Results Reviewed: Laboratory Tests 04/13/25 04/13/25 09:20 09:23 WBC 4.0 L Hgb 15.1 Hct 44.8 Plt Count 124 L Sodium 140 Potassium 5.2 H Creatinine 1.04 Estimated GFR > 60 Fasting Glucose 111 H Calcium 10.1 AST 49 H ALT 56 H Triglycerides 44 Cholesterol 145 LDL Cholesterol, Calc 81 HDL Cholesterol 56 TSH 1.26 Ur Specific [place] 1.020 Urine Protein Negative Urine Glucose (UA) Negative Urine Blood Negative Urine Nitrite Negative Ur Leukocyte Esterase Negative Coding Level of Care Code Est Pt Level 4 (69741) Diagnoses Pure hypercholesterolemia E78.00 Impaired fasting glucose R73.01 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 type: without dysplasia Elevated LFTs R79.89 Simple hepatic cyst K76.89 Benign essential microscopic hematuria R31.1 Additional Codes PHQ-9 - 47748 - PHQ-9 Billing: Yes ([id number]) Assessment & Plan Assessment & Plan (1) Pure hypercholesterolemia: Code(s): E78.00 - Pure hypercholesterolemia, unspecified Category: Medical Plan: Results of his labs done a couple of weeks ago reviewed and discussed with patient - his cholesterol levels remain well-controlled Reinforced low cholesterol diet Continue Simvastatin 20 mg QD Will recheck his labs and fasting lipids in 6 months for follow up (2) Impaired fasting glucose: Code(s): R73.01 - Impaired fasting glucose Category: Medical Plan: His FBS was still elevated at 111 mg/dl on his recent labs but his HgbA1c was normal at 5.0% and 5.1% when previously checked Reinforced low calorie/low carb diet; exercise as tolerated (3) Gilliam's esophagus: Comment: EGD with Bx done in August 2022 Code(s): K22.70 - 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 Category: Medical Qualifiers: Gilliam's esophagus type: without dysplasia Qualified Code(s): K22.70 - 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 Plan: (+) 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 in the past He had a repeat EGD with Bx and colonoscopy done back in August 2022 - 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 although 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 He was started back on PPI to minimize the risk of progression of his Gilliam's esophagitis to esophageal cancer, and he is currently maintained on Omeprazole 20 mg QD Reinforced dietary restrictions Follow up with GI as scheduled for continuing surveillance (4) Elevated LFTs: Code(s): R79.89 - Other specified abnormal findings of blood chemistry Category: Medical Plan: His LFTs are elevated again on his recent labs Have advised patient again to be watchful of his alcohol intake and to avoid taking large doses of acetaminophen or Tylenol Abdominal US done back in April 2022 revealed (+) diffusely increased hepatic echogenicity and sound attenuation consistent with diffuse hepatic steatosis Will continue to monitor his LFTs regularly (5) Simple hepatic cyst: Code(s): K76.89 - Other specified diseases of liver Category: Medical Plan: He also has small hepatic cysts seen on abdominal ultrasound done back in April 2022 - no further work ups or intervention is indicated at this time (6) Benign essential microscopic hematuria: Code(s): R31.1 - Benign essential microscopic hematuria Category: Medical Plan: Asymptomatic Urine cytology have been normal when checked in the past - will continue to monitor this regularly Patient also has simple renal cysts on the right kidney seen incidentally on abdominal US done back in April 2022 Plan Follow up in 6 months Orders: Orders Complete Blood Count Auto Diff 6 Months D64.9 - Anemia, unspecified Comprehensive [place]. Panel Fast 6 Months E78.00 - Pure hypercholesterolemia, unspecified Lipid Panel 6 Months E78.00 - Pure hypercholesterolemia, unspecified Vitamin B12 and Folate 6 Months E53.8 - Deficiency of other specified B group vitamins Vitamin D 25-OH Total 6 Months E55.9 - Vitamin D deficiency, unspecified UA CC w/rflx Micro + Cult 6 Months R30.0 - Dysuria TSH reflex Free T4 6 Months E78.00 - Pure hypercholesterolemia, unspecified
--- OUTSIDE RECORDS SUMMARY | 2025-04-29 16:42 | XMS_ITS | Patient Health Record ---
Author Organization 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 Problem Diverticular disease of colon (908039483) Diverticulosis of large intestine without perforation or abscess without bleeding (K57.30) Active confirmed Problem Gastroesophageal reflux disease (004537204) Gastroesophageal reflux disease (K21.9) Active confirmed Problem Gastritis (2743302) Gastritis (K29.70) Active c onfirmed Problem Generalized abdominal pain (008014389) Abdominal pain, generalized (R10.84) Active confirmed Plan Of Treatment Pending Test Test Name Order Date Pathology 09/15/2022 Future Test Test Name Order Date UPPER GI ENDOSCOPY 07/29/2022 COLONOSCOPY 07/29/2022 Insurance Providers Payer Name Payer Address Payer Phone Subscriber Number Group Number Insured Name Patient Relationship to Insured Coverage Start Date Coverage End Date [facility] [address] [place] [address] [id number] ALCON CONTRERAS Self - patient is the insured Medical (General) History Medical History History ICD Code Denies [place],DM,CVA,Lung disease,renal dise ase Negative colonoscopy in 2008 Surgical History Surgery Date(Month/Year) Tonsillectomy
== END 2025-04-29 16:19 | disposition home or self-care (01) ==
LOC: HO.HMCH 15:32
PROVIDERS: PCP Internal Medicine; Visit Provider Internal Medicine
DX: E78.00 Pure hypercholesterolemia, unspecified (principal); R73.01 Impaired fasting glucose; K22.70 Barrett's esophagus without dysplasia; R79.89 Other specified abnormal findings of blood chemistry; K76.89 Other specified diseases of liver; R31.1 Benign essential microscopic hematuria

== ENCOUNTER → 2025-04-29 15:31 | Outpatient (BNVA) | payer MEDICARE, SELFPAY | PROVIDERS: PCP Internal Medicine; Visit Provider Internal Medicine | DX: K22.70 Barrett's esophagus without dysplasia (principal); E78.00 Pure hypercholesterolemia, unspecified; R73.01 Impaired fasting glucose; R79.89 Other specified abnormal findings of blood chemistry; K76.89 Other specified diseases of liver; R31.1 Benign essential microscopic hematuria | CPT/HCPCS: 96127; 99212 ==